=== PATIENT | male | born 1950 | race Caucasian/White ===

== ENCOUNTER 2020-09-22 08:30 | Outpatient (REF) | payer BC, SELFPAY ==
--- NOTE | ~2020-09-22 | XR_ITS ---
EXAMINATION: XR KNEE STANDING, BILATERAL XR KNEE, LEFT CLINICAL INFORMATION: Pain. COMPARISON: None. TECHNIQUE: AP standing view of the right and left knee. Lateral and sunrise views of the left knee. FINDINGS: Mild left knee medial compartment joint space narrowing. Tiny patellofemoral marginal osteophytes. No erosion. No fracture or dislocation. Trace joint effusion. Atherosclerotic calcifications. XR/XR knee standing BI IMPRESSION: Mild medial and patellofemoral compartment osteoarthritis within the left knee. Trace joint effusion.
--- NOTE | ~2020-09-22 | XR_ITS ---
EXAMINATION: XR KNEE STANDING, BILATERAL XR KNEE, LEFT CLINICAL INFORMATION: Pain. COMPARISON: None. TECHNIQUE: AP standing view of the right and left knee. Lateral and sunrise views of the left knee. FINDINGS: Mild left knee medial compartment joint space narrowing. Tiny patellofemoral marginal osteophytes. No erosion. No fracture or dislocation. Trace joint effusion. Atherosclerotic calcifications. XR/XR knee LT 2V IMPRESSION: Mild medial and patellofemoral compartment osteoarthritis within the left knee. Trace joint effusion.
== END 2020-09-22 08:31 | disposition home or self-care (01) ==
LOC: HO.HOSX 08:30
PROVIDERS: Visit Provider Physician Assistant
DX: M25.562 Pain in left knee (principal); M17.12 Unilateral primary osteoarthritis, left knee; M10.9 Gout, unspecified; I10 Essential (primary) hypertension; C34.90 Malignant neoplasm of unspecified part of unspecified bronchus or lung
CPT/HCPCS: 73560; 73565

== ENCOUNTER 2020-12-06 08:05 | Outpatient (REF) | payer MEDICARE, SELFPAY ==
[2020-12-06 11:29] LABS: MANUAL DIFF FLAG NO
[2020-12-06 11:33] LABS: Basophils Absolute Auto 0.1 X10*3/uL (0.0-0.2); Eosinophils Absolute Auto 0.4 X10*3/uL (0.0-0.4); Eosinophils Percent Auto 4.4 % (0-4); Hematocrit 40.4 % (42-52); Hemoglobin 12.6 g/dl (14.0-18.0); Imm Gran Abs Auto 0.03 X10*3/uL (0.00-0.03); Imm Gran Pct Auto 0.4 % (0.0-0.4); Lymphocytes Absolute Auto 0.9 X10*3/uL (1.2-4.9); Lymphocytes Percent Auto 11.1 % (20-40); Mean Corpuscular HGB Conc 31.2 g/dl (31.0-36.0); Mean Corpuscular Hemoglobin 26.3 pg (27.0-33.0); Mean Corpuscular Volume 84.3 fL (80-98); Mean Platelet Volume 10.4 fL (9.4-12.4); Monocytes Absolute Auto 1.2 X10*3/uL (0.1-1.2); Monocytes Percent Auto 15.1 % (2-11); Neutrophils Absolute Auto 5.6 X10*3/uL (2.0-8.3); Platelet Count 385 X10*3/uL (160-400); Red Blood Count 4.79 X10*6/uL (4.60-5.80); Red Cell Distribution Width 18.5 % (11.0-16.0); White Blood Count 8.2 X10*3/uL (4.8-10.8)
[2020-12-06 11:57] LABS: Alanine Aminotransferase 17 U/L (0-40); Albumin Level 4.2 g/dL (3.5-5.0); Alkaline Phosphatase 95 U/L (39-117); Anion Gap 16 (12-20); Aspartate Amino Transferase 20 U/L (5-37); Bilirubin Total 0.3 mg/dL (0.0-1.0); Blood Urea Nitrogen 27 mg/dL (9-16); Calcium 9.4 mg/dL (8.4-10.2); Carbon Dioxide 24 mmol/L (22-29); Chloride 102 mmol/L (96-108); Cholesterol 132 mg/dL; Estimated Glomerular Filt Rate > 60; Glucose Fasting 107 mg/dL (60-99); HDL Cholesterol 30 mg/dL; LDL Cholesterol Calculated 73 mg/dl; Potassium 4.4 mmol/L (3.3-5.1); Sodium 138 mmol/L (135-145); Total Protein 8.5 g/dL (6.5-8.0); Triglycerides 147 mg/dL
[2020-12-06 12:22] LABS: Thyroid Stimulating Hormone 2.86 uIU/mL (0.32-4.0); Vitamin D 25-OH Total 58.8 ng/mL (>30)
== END 2020-12-06 08:06 | disposition home or self-care (01) ==
LOC: HO.HMGCLDS 08:05
PROVIDERS: PCP Internal Medicine; Visit Provider Internal Medicine
DX: C34.31 Malignant neoplasm of lower lobe, right bronchus or lung (principal); E78.00 Pure hypercholesterolemia, unspecified; E55.9 Vitamin D deficiency, unspecified; N40.0 Benign prostatic hyperplasia without lower urinary tract symptoms; M10.9 Gout, unspecified
CPT/HCPCS: 36415; 80053; 80061; 82306; 84443; 85025

== ENCOUNTER 2021-10-03 08:26 | Outpatient (REF) | payer MEDICARE, SELFPAY ==
[2021-10-03 11:16] LABS: MANUAL DIFF FLAG NO
[2021-10-03 11:21] LABS: Appearance Urine Clear; Color Urine Yellow; Glucose Urine UA Negative (Negative); Leukocyte Esterase Urine Negative (Negative); Nitrite Urine Negative (Negative); PH 5.5 (5.0-8.0); Urine Blood Negative (Negative); Urine Ketones Negative (Negative); Urine Protein Negative (Neg-Trace)
[2021-10-03 11:25] LABS: Bacteria Urine None Seen (None Seen); Basophils Absolute Auto 0.1 X10*3/uL (0.0-0.2); Basophils Percent Auto 0.8 % (0-2); Eosinophils Absolute Auto 0.3 X10*3/uL (0.0-0.4); Eosinophils Percent Auto 4.8 % (0-4); Hemoglobin 13.4 g/dl (14.0-18.0); Hyaline Casts Urine 0-2 /LPF (0-2); Imm Gran Abs Auto 0.04 X10*3/uL (0.00-0.03); Imm Gran Pct Auto 0.6 % (0.0-0.4); Lymphocytes Absolute Auto 1.1 X10*3/uL (1.2-4.9); Mean Corpuscular HGB Conc 33.5 g/dl (31.0-36.0); Mean Corpuscular Hemoglobin 30.3 pg (27.0-33.0); Mean Corpuscular Volume 90.5 fL (80.0-98.0); Mean Platelet Volume 10.4 fL (9.4-12.4); Monocytes Percent Auto 13.3 % (2-11); Neutrophils Absolute Auto 4.7 x10*3/uL (2.0-8.3); Neutrophils Percent Auto 65.5 % (45-73); Platelet Count 287 X10*3/uL (160-400); Red Blood Count 4.42 X10*6/uL (4.60-5.80); Red Cell Distribution Width 13.6 % (11.0-16.0); Squamous Epithelial Cell Urine 0-2 /HPF (0-2); WBC Urine 0-5 /HPF (0-5); White Blood Count 7.2 X10*3/uL (4.8-10.8)
[2021-10-03 12:18] LABS: Alanine Aminotransferase 18 U/L (0-40); Albumin Level 4.3 g/dL (3.5-5.0); Alkaline Phosphatase 85 U/L (39-117); Anion Gap 16 (12-20); Aspartate Amino Transferase 18 U/L (5-37); Bilirubin Total 0.4 mg/dL (0.0-1.0); Blood Urea Nitrogen 21 mg/dL (9-16); Calcium 9.3 mg/dL (8.4-10.2); Carbon Dioxide 23 mmol/L (22-29); Chloride 106 mmol/L (96-108); Cholesterol 155 mg/dL; Estimated Glomerular Filt Rate > 60; Glucose Fasting 125 mg/dL (60-99); HDL Cholesterol 40 mg/dL; LDL Cholesterol Calculated 95 mg/dl; Potassium 4.2 mmol/L (3.3-5.1); Sodium 141 mmol/L (135-145); Total Protein 7.6 g/dL (6.5-8.0); Triglycerides 103 mg/dL
[2021-10-03 12:23] LABS: PSA,Total (Free>4and<10) 0.87 ng/mL (0.00-4.00); Thyroid Stimulating Hormone 0.98 uIU/mL (0.32-4.0); Vitamin D 25-OH Total 52.7 ng/mL (>30)
== END 2021-10-03 08:27 | disposition home or self-care (01) ==
LOC: HO.HMGCLDS 08:26
PROVIDERS: PCP Internal Medicine; Visit Provider Internal Medicine
DX: Z12.5 Encounter for screening for malignant neoplasm of prostate (principal); E78.00 Pure hypercholesterolemia, unspecified; C34.31 Malignant neoplasm of lower lobe, right bronchus or lung; N40.0 Benign prostatic hyperplasia without lower urinary tract symptoms; E55.9 Vitamin D deficiency, unspecified; R09.82 Postnasal drip
CPT/HCPCS: 36415; 80053; 80061; 81001; 82306; 84153; 84443; 85025

== ENCOUNTER 2022-11-11 09:13 | Day surgery (SDC) | payer MEDICARE, SELFPAY ==
--- NOTE | 2022-11-08 09:18 | P.CONAN_ITS ---
Documented by User: Madalyn Mckinney NP 11/08/22 09:19 HPI - Anesthesia Eval Consult details Narrative: 72yo M for Colonoscopy PMFSH Active Problems Active Problems: All Active Problems (Updated 11/08/22 @ 06:45 by Mercedes Hays RN) Osteoarthritis of left knee (Acute) Past Medical History Medical History Back pain Hyperlipidemia Gout Lung cancer Surgical History Surgical History Hx of cataract extraction History of lung surgery Hx of colonoscopy Social History Social History Alcohol intake: never Patient Tobacco Use Status: Tobacco use Unknown Advance Directives: No Advance Directives Information Provided: Yes Current occupational status: retired Meds Allergies Allergy/AdvReac Type Severity Reaction Status Date / Time No Known Allergies Allergy Unverified 10/28/19 15:29 [No Known Allergies*] Home Medications Medication Instructions Recorded Confirmed Last Taken Type atorvastatin 10 mg tablet 10 mg PO DAILY 09/22/20 Unknown History cholecalciferol (vitamin D3) 50 50 mcg PO DAILY 09/22/20 Unknown History mcg (2,000 unit) capsule fluticasone propionate 50 1 spray intranasal DAILY 09/22/20 Unknown History mcg/actuation nasal spray,suspension ibuprofen 800 mg tablet 800 mg PO TID 09/22/20 Unknown History tamsulosin 0.4 mg capsule 0.4 mg PO DAILY 09/22/20 Unknown History Exam Exam Date and Time: November 08, 2022 0918 Assessment and Plan Assessment Anesthesia Assessment: Chart Reviewed Documented by User: Shoshana Doss MD 11/11/22 10:56 HPI - Anesthesia Eval Consult details Narrative: 72yo M for Colonoscopy. Colonoscopy x2 several years ago-conscious sedtion- demerol/versed, fentanyl/versed PMFSH Active Problems Active Problems: All Active Problems (Updated 11/11/22 @ 10:24 by Shoshana Doss MD) Osteoarthritis of left knee (Acute) Snores but never had sleep study Past Medical History Medical History Back pain Hyperlipidemia Gout Lung cancer Family History Family history of problems with anesthesia: No Surgical History Surgical History Hx of cataract extraction History of lung surgery Hx of colonoscopy History of Problems with Anesthesia: No Social History Social History Alcohol intake: never Patient Tobacco Use Status: Tobacco use Unknown Advance Directives: No Advance Directives Information Provided: Yes Current occupational status: retired Meds Allergies Allergy/AdvReac Type Severity Reaction Status Date / Time No Known Allergies Allergy Unverified 10/28/19 15:29 [No Known Allergies*] Home Medications Medication Instructions Recorded Confirmed Last Taken Type atorvastatin 10 mg tablet 10 mg PO DAILY 09/22/20 Unknown History cholecalciferol (vitamin D3) 50 50 mcg PO DAILY 09/22/20 Unknown History mcg (2,000 unit) capsule fluticasone propionate 50 1 spray intranasal DAILY 09/22/20 Unknown History mcg/actuation nasal spray,suspension ibuprofen 800 mg tablet 800 mg PO TID 09/22/20 Unknown History tamsulosin 0.4 mg capsule 0.4 mg PO DAILY 09/22/20 Unknown History Exam Height,Weight and Vital Signs: Height 6 ft 2 in Weight 113.398 kg Vital Signs Temp Pulse Resp BP Pulse Ox O2 Del Method 11/11/22 10:09 96.9 F 97 18 144/84 H 94 Room Air Airway Mallampati Class: III TM Dist: >3cm Neck ROM: Full Partial: Upper Loose/Missing/Broken Teeth: Yes (Partial dentures top. Denies broken or loose teeth) Heart: RRR Lungs: CTAB Assessment and Plan Assessment Anesthesia Assessment: Anesthesia Plan Discussed Final Anesthetic Review Family History of Problems with Anesthesia: No History of Problems with Anesthesia: No NPO: Yes ASA Class: III Final Preanesthetic Review: No Changes in Pt Med Stat, Meds/Allgs Chart Reviewed, Consent Obtained/Reviewed and Anes Risks/Benef Reviewed Patient Risk: Intermediate Procedure Risk: Low Assessment/Block/Sedation in SS: Assess/Block/Sedation-SS Anesthetic Plan Anesthetic Plan: MAC: Disposition: Standard PACU
[2022-11-11 10:09] VITALS: BP 144/84; PULSE 97; RESP 18; TEMP 36.1; O2SAT 94; BMI 32.1
[2022-11-11] MEDS: Lactated Ringers 1,000 ML 100 ML IVCONT (10:51)
[2022-11-11 12:02] VITALS: BP 108/58; PULSE 100; RESP 16; TEMP 36.1; O2SAT 99
--- NOTE | 2022-11-11 12:08 | P.BOP_ITS ---
Brief Operative Note Date of Service: 11/11/22 Pre-op diagnosis: Screening Post-op diagnosis: other (Polyps) Procedure: Colonoscopy to the cecum and TI with hot snare polypectomy at 50cm with placement of 1 Resolution clip, and cold snare polypectomy of rectal polyp Surgeon: Ac Plata Anesthesia: MAC Was an Instrument Technician Helper used for this Procedure?: No Estimated blood loss (mL): 2.0 Pathology: other (A. Polyp at 50cm B. Rectal polyp) Condition: stable Disposition: PACU
[2022-11-11 12:17] VITALS: BP 114/73; PULSE 89; RESP 16; TEMP 36.6; O2SAT 97
--- NOTE | 2022-11-11 21:23 | OP_ITS ---
DATE OF SERVICE: 11/11/2022 SURGEON: Ac Plata MD INDICATIONS: The patient presents for evaluation of colorectal cancer screening. Full consent has been obtained from him for this, including risks of bleeding and perforation. PREOPERATIVE DIAGNOSIS: Colorectal cancer screening. POSTOPERATIVE DIAGNOSIS: PROCEDURE PERFORMED: Colonoscopy to the cecum and terminal ileum with hot snare polypectomy x 1 with placement of a resolution clip at 50 cm and cold snare polypectomy of rectal polyp. ESTIMATED BLOOD LOSS: COMPLICATIONS: ANESTHESIA: Monitored anesthesia care. ASSISTANTS: SPECIMENS: POSTOPERATIVE DIAGNOSES: Colorectal cancer screening, colon polyps, diverticulosis, and internal hemorrhoids. DESCRIPTION OF PROCEDURE: The patient was placed in the left lateral decubitus position. The digital rectal exam revealed no abnormalities. The Olympus video pediatric colonoscope was entered into the rectum and advanced to the cecum with the assistance of abdominal wall pressure. Once in the cecum, I did identify normal-appearing cecal pouch with appendiceal orifice and a normal-appearing ileocecal valve. The terminal ileum was cannulated and appeared normal. The scope was withdrawn back in the colon. The entire cecum and ileocecal valve appeared normal. The scope was then slowly withdrawn assessing all mucosal surfaces carefully. Preparation was excellent. At 50 cm was an approximately 10 mm polyp, which was removed by hot snare polypectomy and recovered by suction. A single resolution clip was applied with good deployment and good hemostasis at the polypectomy site. In the distal rectum was an approximately 4 mm polyp, which was removed by cold snare polypectomy and recovered by suction. The polypectomy site appeared clean, without any sign of residual polyp nor significant bleeding. There were several hyperplastic appearing less than 5 mm polyps in the rectosigmoid area as well, but these were not removed nor biopsied. There was a moderate amount of sigmoid diverticulosis. In the rectum, scope was retroflexed visualizing small internal hemorrhoids as well. The scope was straightened and withdrawn from the patient. He tolerated the procedure well and was returned to the recovery area in stable condition. IMPRESSION: 1. Colon polyps. 2. Diverticulosis. 3. Internal hemorrhoids. PLAN: The results of the pathology will be checked, I would recommend a repeat colonoscopy in 5 years for further screening and surveillance. He was advised not to use any aspirin and NSAIDs for 1 week. He will otherwise see me on a p.r.n. basis. MD GRAZYNA Koch/KONSTANTIN / [id number] NADEGE
== END 2022-11-11 14:19 | disposition home or self-care (01) ==
PROVIDERS: PCP Internal Medicine; Visit Provider Internal Medicine
PROC: 0DJD8ZZ Inspection of Lower Intestinal Tract, Via Natural or Artificial Opening Endoscopic (ICD-10-PCS; CPT 45378; principal; 2022-11-11 10:50)
DX: Z12.11 Encounter for screening for malignant neoplasm of colon (principal); Z80.0 Family history of malignant neoplasm of digestive organs; D12.5 Benign neoplasm of sigmoid colon; K62.1 Rectal polyp; K57.30 Diverticulosis of large intestine without perforation or abscess without bleeding; K64.8 Other hemorrhoids; Z85.118 Personal history of other malignant neoplasm of bronchus and lung; Z79.899 Other long term (current) drug therapy; Z87.891 Personal history of nicotine dependence
CPT/HCPCS: 45385; 88305

== ENCOUNTER 2023-04-17 08:49 | Outpatient (REF) | payer MEDICARE, SELFPAY ==
[2023-04-17 11:30] LABS: Appearance Urine Turbid; Color Urine Dark Yellow; Glucose Urine UA Negative (Negative); Leukocyte Esterase Urine Trace (Negative); Nitrite Urine Negative (Negative); PH 5.5 (5.0-9.0); Specific Gravity - Urine 1.025 (1.005-1.025); UMIC TRIGGER UA YES; Urine Blood Negative (Negative); Urine Ketones Trace mg/dL (Negative); Urine Protein 30 (1+) mg/dL (Neg-Trace)
[2023-04-17 11:36] LABS: Bacteria Urine None Seen (None Seen); RBC Urine 0-2 /HPF (0-2); Squamous Epithelial Cell Urine 0-2 /HPF (0-2); WBC Urine 0-5 /HPF (0-5)
[2023-04-17 11:38] LABS: MANUAL DIFF FLAG NO
[2023-04-17 11:42] LABS: Basophils Absolute Auto 0.1 X10*3/uL (0.0-0.2); Basophils Percent Auto 1.2 % (0-2); Eosinophils Absolute Auto 0.3 X10*3/uL (0.0-0.4); Eosinophils Percent Auto 3.8 % (0-4); Hematocrit 43.3 % (42.0-52.0); Hemoglobin 14.6 g/dl (14.0-18.0); Imm Gran Abs Auto 0.04 X10*3/uL (0.00-0.03); Imm Gran Pct Auto 0.5 % (0.0-0.4); Lymphocytes Absolute Auto 1.3 X10*3/uL (1.2-4.9); Lymphocytes Percent Auto 16.7 % (20-40); Mean Corpuscular HGB Conc 33.7 g/dl (31.0-36.0); Mean Corpuscular Hemoglobin 30.7 pg (27.0-33.0); Mean Platelet Volume 10.8 fL (9.4-12.4); Monocytes Absolute Auto 0.9 X10*3/uL (0.1-1.2); Monocytes Percent Auto 12.4 % (2-11); Neutrophils Percent Auto 65.4 % (45-73); Platelet Count 268 X10*3/uL (160-400); Red Blood Count 4.76 X10*6/uL (4.60-5.80); Red Cell Distribution Width 13.2 % (11.0-16.0); White Blood Count 7.6 X10*3/uL (4.8-10.8)
[2023-04-17 12:18] LABS: Thyroid Stimulating Hormone 1.46 uIU/mL (0.32-4.0); Vitamin D 25-OH Total 48.3 ng/mL (>30)
[2023-04-17 12:20] LABS: Alanine Aminotransferase 26 U/L (0-40); Albumin Level 4.5 g/dL (3.5-5.0); Alkaline Phosphatase 85 U/L (39-117); Anion Gap 17 (12-20); Aspartate Amino Transferase 24 U/L (5-37); Bilirubin Total 0.5 mg/dL (0.0-1.0); Blood Urea Nitrogen 22 mg/dL (9-16); Calcium 10.1 mg/dL (8.4-10.2); Carbon Dioxide 21 mmol/L (22-29); Chloride 104 mmol/L (96-108); Cholesterol 150 mg/dL (<200); Estimated Glomerular Filt Rate > 60; Glucose Fasting 141 mg/dL (60-99); HDL Cholesterol 33 mg/dL (>40); LDL Cholesterol Calculated 79 mg/dL (<100); Potassium 4.4 mmol/L (3.3-5.1); Sodium 138 mmol/L (135-145); Total Protein 8.3 g/dL (6.5-8.0); Triglycerides 194 mg/dL (<150)
== END 2023-04-17 08:50 | disposition home or self-care (01) ==
LOC: HO.HMGCLDS 08:49
PROVIDERS: PCP Internal Medicine; Visit Provider Internal Medicine
DX: Z00.00 Encounter for general adult medical examination without abnormal findings (principal); N40.0 Benign prostatic hyperplasia without lower urinary tract symptoms; E66.09 Other obesity due to excess calories; E78.00 Pure hypercholesterolemia, unspecified; E55.9 Vitamin D deficiency, unspecified; R09.82 Postnasal drip; C34.31 Malignant neoplasm of lower lobe, right bronchus or lung; Z12.5 Encounter for screening for malignant neoplasm of prostate
CPT/HCPCS: 36415; 80053; 80061; 81001; 82306; 84153; 84443; 85025

== ENCOUNTER 2024-04-14 09:25 | Outpatient (REF) | payer MEDICARE, SELFPAY ==
--- OUTSIDE RECORDS SUMMARY | 2024-04-14 11:45 | XMS_ITS | Clinical Summary ---
Author Organization [facility] Address [address] [place] [address] Care Team Providers Care Public Safety Police Name Role Phone Ac Garcia Primary Care Provider [phone] Allergies No known active allergies Medications Medication [...] age to complete this topic Care Teams Public Safety Police Relationship Specialty Start Date End Date Ac Garcia DO [address] [place] [phone] PCP - General Internal Medicine 07/30/16
--- OUTSIDE RECORDS SUMMARY | 2024-04-14 11:45 | XMS_ITS | Encounter Summary ---
Author Organization [facility] Address [address] [place] [address] Care Team Providers Care Inspector Eyeglass Name Role Phone Ac Garcia DO Primary Care Provider [phone] Encounter Details Date Type Department Care Team Description 12/12/2017 Nurse Only [facility] Oncology Services [address] [place] [address] Loren Crain, RN Social History Tobacco Use [...] this encounter Progress Notes * Loren Crain, CEILING INSTALLER - 12/12/2017 2:50 PM EDT Survivorship Visit [...] provided him with a copy of the [place] [employer] Cancers Survivorship Guide Book and encouraged him to call with any additional questions or concerns. Please see Survivorship Care Plan below. [facility] Survivorship Treatment Plan cA Halle 1950 This Survivorship plan has been created for you by your oncology team. It contains information on how to contact her team, a summary of your diagnosis and treatment, recommendations for your follow-up care as well as information about maintaining a healthy style. Care Team: Surgeon Dr. Sukhjinder Whitney [phone] Danuta Hernandez [phone] 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 Annual skin exam by PCP or fisher dip net. ?? Lung: Patient at increased risk if [...] recommended resources that could be helpful: ??? [employer]: www.cancer.org or call ??? The Survivorship Center: www.cancer.org/survivorshipcenter ??? [employer]: www.[employer].org ??? Survivor's Journey [email or web address] Note: Important Caution [...] on filedocumented in this encounter Care Teams Inspector Eyeglass Relationship Specialty Start Date End Date Ac Garcia DO [address] [place] [phone] PCP - General Internal Medicine 07/30/16 documented as of this encounter
--- OUTSIDE RECORDS SUMMARY | 2024-04-14 11:45 | XMS_ITS | Clinical Summary ---
Author Organization [facility] Address [address] [place] [phone] Care Team Providers Care Body And Frame Man Name Role Phone Ac Garcia DO Primary Care Provider [phone] Allergies No known active allergies Medications atorvastatin [...] Site/Laterality Comments OTHER SURGICAL HISTORY Right PROCEDURE: [place] RMVL LUNG OTHER THAN PNEUMONECTOMY 1 LOBE LOBECT; COMMENT: s/p RLL lobectomy 2017 Medical History Medical History Date Comments Lung cancer ([facility]/HCC) 2017 DX:Lung ca ncer ([facility]) Family History Medical History Relation Name Comments [...] Documents on File Type Date Recorded Patient Sample Weaver Expl anation Health Care Decision (hx) 06/25/2022 AD RAMIREZ DIRECTIVE Health Care Decision (hx) 06/25/2022 AD RAMIREZ DIRECTIVE Care Teams Body And Frame Man Relationship Specialty Start Date End Date Ac Garcia DO [address] [place] [phone] PCP - General 05/29/16
[2024-04-14 13:32] LABS: Basophils Absolute Auto 0.1 X10*3/uL (0.0-0.2); Basophils Percent Auto 1.2 % (0-2); Eosinophils Absolute Auto 0.3 X10*3/uL (0.0-0.4); Eosinophils Percent Auto 3.9 % (0-4); Hematocrit 42.6 % (42.0-52.0); Hemoglobin 13.8 g/dl (14.0-18.0); Imm Gran Abs Auto 0.04 X10*3/uL (0.00-0.03); Imm Gran Pct Auto 0.6 % (0.0-0.4); Lymphocytes Absolute Auto 1.1 X10*3/uL (1.2-4.9); Lymphocytes Percent Auto 16.8 % (20-40); MANUAL DIFF FLAG NO; Mean Corpuscular HGB Conc 32.4 g/dl (31.0-36.0); Mean Corpuscular Hemoglobin 30.4 pg (27.0-33.0); Mean Corpuscular Volume 93.8 fL (80.0-98.0); Mean Platelet Volume 10.7 fL (9.4-12.4); Monocytes Absolute Auto 0.9 X10*3/uL (0.1-1.2); Monocytes Percent Auto 13.2 % (2-11); Neutrophils Absolute Auto 4.3 x10*3/uL (2.0-8.3); Neutrophils Percent Auto 64.3 % (45-73); Platelet Count 235 X10*3/uL (160-400); Red Blood Count 4.54 X10*6/uL (4.60-5.80); Red Cell Distribution Width 13.3 % (11.0-16.0); White Blood Count 6.7 X10*3/uL (4.8-10.8)
[2024-04-14 13:47] LABS: Estimated Average Glucose 154 mg/dL; Total Hemoglobin (HGBA1C) 3620.8429 umol/L
[2024-04-14 14:07] LABS: Alanine Aminotransferase 34 U/L (0-40); Albumin Level 4.3 g/dL (3.5-5.0); Alkaline Phosphatase 93 U/L (39-117); Anion Gap 11 (12-20); Aspartate Amino Transferase 28 U/L (5-37); Bilirubin Direct 0.1 mg/dL (0.0-0.5); Bilirubin Total 0.4 mg/dL (0.0-1.0); Blood Urea Nitrogen 18 mg/dL (9-16); C Reactive Protein 0.52 mg/dL (< or = 0.50); Calcium 9.6 mg/dL (8.4-10.2); Carbon Dioxide 27 mmol/L (22-29); Chloride 109 mmol/L (96-108); Cholesterol 148 mg/dL (<200); Estimated Glomerular Filt Rate > 60; Glucose Fasting 169 mg/dL (60-99); HDL Cholesterol 37 mg/dL (>40); LDL Cholesterol Calculated 79 mg/dL (<100); Magnesium 2.1 mg/dL (1.6-2.6); Potassium 5.2 mmol/L (3.3-5.1); Sodium 142 mmol/L (135-145); Triglycerides 163 mg/dL (<150)
[2024-04-14 14:08] LABS: TSH reflex Free T4 1.15 uIU/mL (0.32-4.0); Vitamin D 25-OH Total 67.5 ng/mL (>30)
[2024-04-14 14:22] LABS: Creatinine Urine 144.18 mg/dL; Microalbum/Creatinine Ratio Ur 6.9 ug/mg cr (<30)
[2024-04-14 14:37] LABS: PSA,Total (Free>4and<10) 1.06 ng/mL (0.00-4.00)
[2024-04-14 14:51] LABS: Folate 19.5 ng/mL (> or = 4.0); Vitamin B12 1679 pg/mL (200-900)
[2024-04-24 08:38] LABS: Vitamin B1 26 nmol/L (8-30)
== END 2024-04-14 09:26 | disposition home or self-care (01) ==
LOC: HO.HMGCLDS 09:25
PROVIDERS: PCP Internal Medicine; Visit Provider Physician Assistant Medical
DX: Z00.00 Encounter for general adult medical examination without abnormal findings (principal); E11.9 Type 2 diabetes mellitus without complications; H91.93 Unspecified hearing loss, bilateral; E78.00 Pure hypercholesterolemia, unspecified; N40.0 Benign prostatic hyperplasia without lower urinary tract symptoms; H26.9 Unspecified cataract; R31.9 Hematuria, unspecified; E55.9 Vitamin D deficiency, unspecified; M54.9 Dorsalgia, unspecified; C34.90 Malignant neoplasm of unspecified part of unspecified bronchus or lung; M10.9 Gout, unspecified; M17.12 Unilateral primary osteoarthritis, left knee; E66.811 Obesity, class 1; Z68.33 Body mass index [BMI] 33.0-33.9, adult; F10.20 Alcohol dependence, uncomplicated; Z79.899 Other long term (current) drug therapy; Z12.5 Encounter for screening for malignant neoplasm of prostate
CPT/HCPCS: 36415; 80053; 80061; 80076; 82043; 82306; 82570; 82607; 82746; 83036; 83735; 84153; 84425; 84443; 85025; 86140; 99387

== ENCOUNTER 2024-04-14 09:25 | Outpatient (AMB) | payer MEDICARE, SELFPAY ==
--- NOTE | 2024-04-14 09:26 | A.OFFPC_ITS ---
Vital Signs 04/14/24 09:29 Height 6 ft 1.75 in Weight 259 lb BMI 33.5 BP 126/72 Blood Pressure Location Rt brachial Pulse 75 Pulse Source Pulse Oximeter Temp 97.1 F Pulse Oximetry (%) 96 Intake Visit Reasons: physical Intake Note: tightness between shoulders and goes up to neck Allergies No Known Allergies [No Known Allergies*] Allergy (Verified 04/14/24 09:53) Medication List - Last Reconciled 04/14/24 by Kasia Peters PA-C atorvastatin 10 mg PO DAILY cholecalciferol (vitamin D3) 50 mcg PO DAILY fluticasone propionate 50 mcg/actuation 1 spray intranasal DAILY ibuprofen 800 mg PO TID multivitamin 1 tab PO DAILY tamsulosin 0.4 mg PO DAILY PFSH Medical History (Updated 04/14/24 @ 10:07 by Kasia Peters PA-C) Class 1 obesity with body mass index (BMI) of 33.0 to 33.9 in adult Decreased hearing of both ears History of intracranial hemorrhage Mild hypercholesterolemia BPH (benign prostatic hyperplasia) Cataract Alcoholism Hematuria Vitamin D deficiency Back pain Hyperlipidemia Gout Lung cancer Surgical History Hx of cataract extraction History of lung surgery Hx of colonoscopy (~11/11/22) Social History Alcohol intake: never Comment: WALKING NEW DOG 2 WKS AGO Patient Tobacco Use Status: Tobacco use Unknown Current occupational status: retired Physical exam (Primary Care) Vital Signs: Last Vital Signs Temp 97.1 F 04/14/24 09:29 Pulse 75 04/14/24 09:29 BP 126/72 04/14/24 09:29 Pulse Ox 85 L 04/14/24 09:29 Care Plan Goal for BP management: 130/80 BMI result Body Mass Index 33.5 BMI Assessment/Plan discussion: High BMI High, discussed plan: lifestyle, weight reduction, dietary, physical activity and alcohol moderation Tobacco/Smoking Status: Tobacco use Status Patient Tobacco Use Status Tobacco use Unknown 04/14/24 09:31 Coding Level of Care Code New Pt Prev Care >65yr (98992) Diagnoses Decreased hearing of both ears H91.93 Mild hypercholesterolemia E78.00 BPH (benign prostatic hyperplasia) N40.0 Cataract H26.9 Hematuria R31.9 Vitamin D deficiency E55.9 Back pain M54.9 Lung cancer C34.90 Gout M10.9 Hyperlipidemia E78.5 Osteoarthritis of left knee M17.12 Class 1 obesity with body mass index (BMI) of 33.0 to 33.9 in adult E66.811; Z68.33 Alcoholism F10.20 Assessment & Plan Assessment & Plan (1) Decreased hearing of both ears: Code(s): H91.93 - Unspecified hearing loss, bilateral Category: Medical Plan: Patient reports decreased hearing. Will refer to ENT Dr. Minaya. Condition is chronic and stable continue to monitor. (2) Mild hypercholesterolemia: Code(s): E78.00 - Pure hypercholesterolemia, unspecified Category: Medical Plan: LDL Goal <100. TC Goal <200. Triglyceride Goal <150. Triglyceride on 04/17/2023 was 194. Total cholesterol 150. LDL 79. HDL 33. Patient to continue improving his diet and exercise regimen. Patient to continue atorvastatin 10 mg daily. Condition is chronic and stable continue to monitor. (3) BPH (benign prostatic hyperplasia): Code(s): N40.0 - Benign prostatic hyperplasia without lower urinary tract symptoms Category: Medical Plan: Patient to continue tamsulosin 0.4 mg daily. Condition is chronic and stable continue to monitor. (4) Cataract: Code(s): H26.9 - Unspecified cataract Category: Medical Plan: Patient is a continue yearly eye exams. Condition is chronic and stable continue to monitor. (5) Hematuria: Comment: Benign with negative workup Code(s): R31.9 - Hematuria, unspecified Category: Medical Plan: Condition is chronic and stable continue to monitor. (6) Vitamin D deficiency: Code(s): E55.9 - Vitamin D deficiency, unspecified Category: Medical Plan: Patient's last labs in April of 2023 vitamin-D level was within normal limits. Patient to continue vitamin-D supplement 50 mcg daily. Condition is chronic and stable with any to monitor. (7) Back pain: Comment: disc disease Code(s): M54.9 - Dorsalgia, unspecified Category: Medical Plan: Patient to continue ibuprofen 800 mg t.i.d./p.r.n.. Condition is chronic and stable continue to monitor. (8) Lung cancer: Comment: s/p RLL resection Code(s): C34.90 - Malignant neoplasm of unspecified part of unspecified bronchus or lung Category: Medical Plan: Condition is chronic and stable continue to monitor. (9) Gout: Comment: both legs Code(s): M10.9 - Gout, unspecified Category: Medical Plan: Condition is chronic and stable continue to monitor. (10) Hyperlipidemia: Code(s): E78.5 - Hyperlipidemia, unspecified Category: Medical Plan: LDL Goal <100. TC Goal <200. Triglyceride Goal <150. Triglyceride on 04/17/2023 was 194. Total cholesterol 150. LDL 79. HDL 33. Patient to continue improving his diet and exercise regimen. Patient to continue atorvastatin 10 mg daily. Condition is chronic and stable continue to monitor. (11) Osteoarthritis of left knee: Code(s): M17.12 - Unilateral primary osteoarthritis, left knee Category: Medical Plan: Patient currently on ibuprofen 800 mg t.i.d./p.r.n.. Condition is chronic and stable continue to monitor. (12) Class 1 obesity with body mass index (BMI) of 33.0 to 33.9 in adult: Code(s): E66.811 - Obesity, class 1; Z68.33 - Body mass index [BMI] 33.0-33.9, adult Category: Medical Plan: Patient has improved his diet and exercise regimen. Condition is chronic and stable continue to monitor. (13) Alcoholism: Code(s): F10.20 - Alcohol dependence, uncomplicated Category: Medical Plan: Condition is chronic and stable continue to monitor. Plan Plan Continue current hyperlipidemia management with atorvastatin and monitor with lipids. Elevation in glucose requires close watch and diabetes assessment through hemoglobin A1c checkpoints. Continual evaluation and management of benign prostatic hyperplasia with finasteride remains necessary. An otolaryngology referral for detailed hearing assessment has been arranged, and prompt treatment for specified chronic issues should persist as symptoms dictate. Post-cataract and lung cancer care have resolved symptoms with maintenance check-ups anticipated. Orders: Orders Comprehensive [place]. Panel Fast Today Z00.00 - Encounter for general adult medical examination without abnormal findings Complete Blood Count Auto Diff Today Z00.00 - Encounter for general adult medical examination without abnormal findings C Reactive Protein Today Z00.00 - Encounter for general adult medical examination without abnormal findings Hemoglobin A1c Today Z00.00 - Encounter for general adult medical examination without abnormal findings Lipid Panel Today Z00.00 - Encounter for general adult medical examination without abnormal findings Liver Panel Today Z00.00 - Encounter for general adult medical examination without abnormal findings Vitamin B1 Today Z00.00 - Encounter for general adult medical examination without abnormal findings Vitamin B12 and Folate Today Z00.00 - Encounter for general adult medical examination without abnormal findings PSA,Total (Free>4and<10) Today Z00.00 - Encounter for general adult medical examination without abnormal findings Magnesium Today Z00.00 - Encounter for general adult medical examination without abnormal findings TSH reflex Free T4 Today Z00.00 - Encounter for general adult medical examination without abnormal findings Vitamin D 25-OH Total Today Z00.00 - Encounter for general adult medical examination without abnormal findings Microalbumin, Random (w Creat) Today E11.9 - Type 2 diabetes mellitus without complications Referrals Ear/Nose/Throat Referral H91.93 - Unspecified hearing loss, bilateral Medications: New ibuprofen 800 mg PO TID 240 tabs 1RF multivitamin 1 tab PO DAILY 90 tabs 1RF atorvastatin 10 mg PO DAILY 90 tabs 1RF cholecalciferol (vitamin D3) 50 mcg PO DAILY 90 caps 1RF tamsulosin 0.4 mg PO DAILY 90 caps 1RF Refilled fluticasone propionate 50 mcg/actuation 1 spray intranasal DAILY 16 grams 3RF Patient Instructions: Patient Instructions - Continue current medications as prescribed and ensure adherence to atorvastatin. - Schedule fasting labs, including a hemoglobin A1c test for diabetes monitoring. - Attend referral appointment with an supervisor travel trailer for hearing assessment. - Arrange a follow-up in six months, or sooner if labs reveal abnormalities. - Monitor symptoms of concern and seek care if current conditions exacerbate. - Complete routine physical exam and blood work at designated intervals. Scribe Plan - Not visible on output: History of Present Illness The patient is a 73-year-old male presenting for an annual physical examination. The patient has hyperlipidemia controlled with atorvastatin, with previously monitored and acceptable lipid levels. The patient's glucose levels have been noted to be elevated in the past but no diagnosis of diabetes has been made, warranting regular monitoring and assessment of potential diabetes. The patient is in remission from right lower lobe lung cancer following resection surgery, with no current respiratory complaints. Managed for benign prostatic hyperplasia, the patient has had episodes of hematuria but currently shows no urinary symptoms. Cataract surgery on both eyes has resolved prior vision problems. For back pain and gout, the patient uses ibuprofen, with the conditions being managed effectively under current treatment. The patient reports diminished hearing ability, indicating a need for further assessment of potential hearing loss. Social History - The patient lives alone and reports no recent falls or difficulties in performing daily activities such as groceries or laundry. - The patient does not drive at night, suggesting self-regulation for safety. - The patient receives vision examinations regularly and plans future evaluations. Review of Systems - Neurological: Reports diminished hearing bilaterally. - Respiratory: Denies cough and reports chest pain only with physical exertion. - Gastrointestinal: Denies abdominal pain and reports regular bowel movements with no bloody stools. - Genitourinary: Reports increased urinary frequency without pain. - Musculoskeletal: Denies new joint pains, but history of back pain is noted. Physical Exam Appearance: Alert. Oriented X3. No acute distress. Head: Normal external exam. Normocephalic. Atraumatic. Eyes: Pupils are equal, round, and reactive to light. Extraocular movements intact. Conjunctiva and sclera normal. Eyelids normal. Ears: External auditory canal normal. Tympanic membranes normal. Hearing diminished, referral to ENT recommended. Throat: Pharynx normal. Uvula midline. Moist mucous membranes. Neck: Normal inspection. Neck supple. Full range of motion. No adenopathy. Thyroid Normal. No meningeal signs. No neck mass noted. Cardiovascular: Normal heart rate and rhythm. Heart sound normal. No murmurs noted. Pulses normal throughout. Respiratory: No respiratory distress. Painless inspiration. Breath sounds normal. No wheezes/rales/rhonchi noted. Chest nontender. No accessory muscle usage noted or decreased air movement noted. Abdomen: Soft and nontender. Bowel sounds normal in all 4 quadrants. No distention noted. No organomegaly noted. No visible injury noted. Back: No costovertebral angle tenderness. Full range of motion noted. Skin: Skin warm and dry. Normal skin color. Normal skin turgor. No rashes/lesions/lacerations noted. Extremities: No lower extremity edema. Extremities exhibit normal range of motion. Extremities nontender. Neuro: Oriented X 3. No motor deficit. No sensory deficit. Reflexes normal. Results - Labs: Prior labs show elevated triglycerides (194 mg/dL), with satisfactory total cholesterol and LDL levels. No recent hemoglobin A1c for diabetes screening conducted. - Based on prior report: Glucose noted to be slightly elevated, but not indicative of diabetes. Plan Continue current hyperlipidemia management with atorvastatin and monitor with lipids. Elevation in glucose requires close watch and diabetes assessment through hemoglobin A1c checkpoints. Continual evaluation and management of benign prostatic hyperplasia with finasteride remains necessary. An otolaryngology referral for detailed hearing assessment has been arranged, and prompt treatment for specified chronic issues should persist as symptoms dictate. Post-cataract and lung cancer care have resolved symptoms with maintenance check-ups anticipated. Patient was informed and verbally consented to the use of an ambient scribe for clinic note documentation during this visit. Discussion Notes During the consultation, a review of current treatments and adherence was carried out, with an added focus on glucose monitoring due to occasional elevations noted. A hemoglobin A1c test will be conducted given the importance of determining diabetic status, which potentially impacts management strategies. Referral for hearing assessment was discussed, and the patient recognized the importance of a potential intervention if necessary. All medications were renewed with refills to maintain compliance, ensuring continuity of care. Future blood work arrangements were made, emphasizing fasting for proper test results once labs are drawn. Patient Instructions - Continue current medications as prescribed and ensure adherence to at orvastatin. - Schedule fasting labs, including a hemoglobin A1c test for diabetes monitoring. - Attend referral appointment with an supervisor travel trailer for hearing assessment. - Arrange a follow-up in six months, or sooner if labs reveal abnormalities. - Monitor symptoms of concern and seek care if current conditions exacerbate. - Complete routine physical exam and blood work at designated intervals.
[2024-04-14 09:29] VITALS: BP 126/72; PULSE 75; TEMP 36.2; O2SAT 96; BMI 33.5
--- OUTSIDE RECORDS SUMMARY | 2024-04-14 10:34 | XMS_ITS | Encounter Summary ---
Author Organization [facility] Address [address] [place] [address] Care Team Providers Care Mainframe Architect Name Role Phone Ac Garcia DO Primary Care Provider [phone] Encounter Details Date Type Department Care Team Description 12/12/2017 Nurse Only [facility] Oncology Services [address] [place] [address] Loren Crain, RN Social History Tobacco Use Types Packs/Day Years Used Date Smoking Tobacco: Former Cigarettes 2 45 0 08/05/1966 - 08/06/2011 Smokeless Tobacco: Never Alcohol Use Standard Drinks/Week Comments No 0 (1 standard drink = 0.6 oz pur e alcohol) Sex and Gender Information Value Date Recorded Sex Assigned at Not on file Gender Identity Not on file Sexual Orientation Not on file Job Start Date Occupation Industry Not on file Not on file Not on file documented as of this encounter Progress Notes * Loren Crain, VICE PRESIDENT FINANCIAL - 12/12/2017 2:50 PM EDT Survivorship Visit Ac is a very pleasant 57-year-old male who was referred to me for a survivorship visit. He was initially diagnosed with lung cancer in July 2016 and underwent surgery followed by chemotherapy andradiation. He completed all his treatment at the end of 2016 and has entered into period of carefulongoing surveillance. Enclosed is a copy of his cancer survivorship care plan which proposes collaborative follow-up. At the time of his post treatment survivorship assessment today, he is generally doing quite well. He denies fatigue and there is no limitations in his ADLs. He remains physically active, states thathe walks his dog every day anywhere from 1-3 miles. He denies any fatigue or SOB. He is maintaininghis weight and admits to a balanced diet. He states that he does not drink (has not in 6-7 years) or smoke anymore. States that he follows up with his primary care every 6 months. Denies any financial or intercurrent stressors at this time. We discussed in detail a review today of patient's cancer survivorship care plan. We reviewed his anticipated schedule of oncology follow-up visits, as well as anticipated laboratory and imaging studies. We discussed the critical importance of continued primary care follow-ups. He states that she will continue to follow up with PCP on a regular basis. We discussed possible late side effects of treatments, as well as signs and symptoms of disease recurrence. We discussed at length the importanceof healthy lifestyle behavior, including health maintenance, weight management, sleep hygiene, nutritional intake, routine aerobic physical exercise, sun exposure and continued tobacco and alcohol abstinence. Local support groups and resources discussed. I provided him with a copy of the [place] [employer] Cancers Survivorship Guide Book and encouraged him to call with any additional questions or concerns. Please see Survivorship Care Plan below. [facility] Survivorship Treatment Plan Ac Halle 1950 This Survivorship plan has been created for you by your oncology team. It contains information on how to contact her team, a summary of your diagnosis and treatment, recommendations for your follow-up care as well as information about maintaining a healthy style. Care Team: Surgeon Dr. Sukhjinder Whitney [phone] Danuta Hernandez [phone] 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 08/28/2016-11/06/2016 Cisplatin 1250mg/m2 and Gemcitabine 1250mg/m2 Day 1, 8 x 4 cycles [facility] Radiation Therapy 12/16/2016-01/31/[address] [place] [id number] cGy [facility] CARDIOVASCULAR ISSUES DUE TO CHEST RADIATION: Patient at risk for premature coronary artery and/or valve disease. Patient encouraged to reduce cardiac risk factors. Reinforced cardiac risk factor reduction including aggressive management of lips and blood pressure control, smoking, weight, exercise, diet, and diabetes/glucose. RESPIRATORY ISSUES: Due to chest radiation, patient has increased risk for radiation pneumonitis. Ireinforced with him to report any concern with his breathing and to either contact us or his PCP. Surgery and chest radiation can cause lung problems. Pulmonary function tests (PFTs) will be done as medically appropriate. HEARING ISSUES: Survivors who received certain chemotherapies or cranial radiation can cause hearing problems. Please report any concerns about your hearing to healthcare providers. KIDNEY ISSUES: Survivors who receive certain chemotherapies medications and or pelvic radiation maybe at risk for kidney problems. Survivorship developed acute kidney injury during therapy should have the blood pressure checked annually TYROID ISSUES: Survivors who received chest radiation can develop nodules, hypothyroidism, hyperthyroidism or cancer. Survivors should have an annual TSH and a thyroid exam. COGNITIVES ISSUES: Patient who has had chemotherapy can report chemo brain . Cancer treatments disrupt the activity of nerve cells that are responsible for tasks like memory, attention, processing and executing functions. If you experience these symptoms, try to focus on one task at a time, use tools, rest and exercise regularly. Report any issue, including how much it's affecting your quality of life to a health care provider. FATIGUE: You may experience fatigue as result of cancer treatment, which often continues after treatment has ended. Staying physically active can help reduce fatigue. Some strategies that can help you manage fatigue are to prioritize and breaking up tasks. Integrative therapies, including the acupuncture may help with management of fatigue. Please discuss any fatigue related concerns with your health care provider. PERIPHERAL NEUROPATHY: You may experience peripheral neuropathy, or damage to nerves, as a result of cancer treatment. This may be temporary or become permanent. It can cause numbness and tingling, pain, weakness, cramping, and burning. Acupuncture may help with symptom management and medication can also be prescribed. Please discuss any neuropathy-related symptoms or concerns PSYCHOSOCIAL ISSUES: When treatment has been completed, many survivors struggle with fear of reoccurrence, depression and/or anxiety, social/family relationships, and employment/financial health. Staying active is good for your state of mind. It can aid in reducing depression and fatigue and increase self- esteem. Survivorship should discuss any issues that are decreasing their equality of life oremotional well-being with their providers. Survivorship education and support programs are available, and a referral to a mental health counselor may also be beneficial. PAIN: There are different techniques that can help treatments pain. There are relaxation techniques, physical therapy, and non-narcotic pain medication. Talk with your medical provider if you are experiencing any pain. Secondary cancer risk: typically within or at the edges of prior radiation treatment field. Reinforced the following: ?? Skin: Practice on safety including regular use of SPF 30+ sunscreen. Report any new lumps or skin changes. Annual skin exam by PCP or stranding supervisor. ?? Lung: Patient at increased risk if chest radiation received and or alkylating chemotherapy. The risk is much higher risk in active smoker. Avoid smoking secondhand smoke and report any respiratorychanges. ?? Sarcoma: Reports any new lumps, especially arising in or at edge of a prior radiation field. ?? AML/MDS due to chemotherapy and/or autologous stem cell transplant. Report any significant increase in fatigue, pallor, petechiae (small red rash), and or bone pains of prior radiation field. HEALTH BEHAVIORS: All cancer survivors are encouraged to pursue a healthy lifestyle as a way to improve their overallhealth that includes, but is not limited to the following: ?? Primary Care Provider (PCP): You should follow up on a regular basis with your PCP for health maintenance, routine screenings, immunizations and preventative care. ?? Weight management: The goal is to achieve and maintain a healthy body weight. Exercise and diet are critical components in achieving this goal. ?? Exercise: Movement is essential. Avoid inactivity and return to normal daily activities as soon as possible following diagnosis. Aim to exercise at least 150 minutes per week. Include strength training exercises at least twice per week ?? Sleep: Establish sleep schedule. Relaxation techniques, and avoid stimulants close to bedtime. ?? Nutrition: Eat a diet that is high in vegetables, fruits, whole grains and lean meats. Try to limit the amount of processed and red meat, as well as refined and processed grain and sugary foods, and fried foods. ?? Smoking: Avoid smoking. This includes tobacco products, Vape, and e-cigs. Your provider can offer smoking cessation programs to help you quit if you smoke. ?? Alcohol: Limit alcohol intake to one drink or less per day for women or less than two for men. ?? Sun Exposure: Reinforced the importance to apply sun screen with SPF 30+ with prolonged sun exposure during all seasons. Reasons to Call: Please call your provider if you experience chronic pain, chronic numbness/tingling, cough that doesn't go away, change in shortness of breath, bone pain, new lumps, weight loss, abdominal pain, fatigue, or any new unusual and/or persistent symptoms. Follow up and Surveillance: You will have at least 5 years of close follow up. Routine lab work monitoring is not recommended unless clinically indicated. A CT scan of your chest every 6 months for 2 years and then annually to complete 5 years of surveillance. You will be scheduled to follow up with your Oncologist after every CT scan. Resources: Here are some recommended resources that could be helpful: ??? [place] [employer]: www.cancer.org or call ??? [facility]: www.cancer.org/survivorshipcenter ??? [employer] [facility]: www.[employer].org ??? Survivor's Journey https://www.survivorjourneys.org/ Note: Important Caution This is a summary document whose purpose is to review the highlights of the cancer chemotherapy treatment plan for this patient. This does not replace the information available in the medical record,a complete medical history provided by the patient, examination and diagnostic information, or educational materials that describe strategies for coping with cancer and adjuvant chemotherapy in detail. Both medical science and an individual's health care needs change and therefore this document hiscurrent only as of the date of preparation. This summary document does not prescribe or recommend any particular medical treatment or care for cancer or other disease and does not substitute for the i ndependent medical judgment of the treating professional. documented in this encounter Plan of Treatment Not on file documented as of this encounter Visit Diagnoses Not on filedocumented in this encounter Care Teams Mainframe Architect Relationship Specialty Start Date End Date Ac Garcia DO [address] [place] [phone] PCP - General Internal Medicine 07/30/16 documented as of this encounter
--- OUTSIDE RECORDS SUMMARY | 2024-04-14 10:34 | XMS_ITS ---
Author Organization [facility] Address [address] [place] [phone] Care Team Providers Care Business Support Name Role Phone Jose (RETIRED) Kimmy WAGNER Primary Care Provid er Unavailable Kimmy Plata Unavailable [phone] REASON FOR VISIT screening,fam hx colon ca Problems Problem Type SNOMED Code ICD Code Onset Dates Problem Status W/U Status Risk Notes Problem Diverticular disease of colon (698449432) Diverticulosis of large intestine without perforation or abscess without bleeding (K57.30) Active confirmed Encounters Encounter Location Date Provider Diagnosis [facility] [place] [facility] Outpatient [address], [place] [id number] 11/11/2022 Kimmy Plata Encounter for scre ening colonoscopy Z12.11 ; Colon polyp K63.5 ; Diverticulosis of large intestine without perforation or abscess without bleeding K57.30 and Other hemorrhoids K64.8 Assessments Encounter Date Diagnosis (ICD Code) Assessment Notes Treatment Notes Treatment Clinical Notes Section Notes 11/11/2022 Encounter for screening colonoscopy (ICD-10 - Z12.11) 11/11/2022 Colon polyp (ICD-10 - K63.5) 11/11/2022 Diverticulosis of large intestine without perforation or abscess without bleeding (ICD-10 - K57.30) 11/11/2022 Other hemorrhoids (ICD-10 - K64.8) Plan Of Treatment No Information Progress Notes * KIMMY LEW[birth year]DOB:[birth year] (73 yo M)Acc No.[id number]:11/11/2022 COLON WITH MAC Patient:?KIMMY LEWIS Provider:?Kimym Plata MD :1950???Age:72 Y???Sex:Male Roel e:11/11/2022 Address:[address] [place] [address] Pcp:Kimmy Garcia (RETIRE D), DO Subjective: * Chief Complaints: * ???1. Screening,fam hx colon ca. * Medical History:? Objective: * Vitals:? Assessment: * Assessment: 1.?Encounter for screening c olonoscopy - Z12.11 (Primary)???2.?Colon polyp - K63.5???3.?Diverticulosis of large intestine without perforation or abscess without bleeding - K57.30???4.?Other hemorrhoids - K64.8??? Plan: * Treatment: * Procedure Codes:?98930 LESIO N REMOVAL COLONOSCOPY, Modifiers: 33 * * The named appointment provid er may or may not be the originator of this progress note, and it is not deemed complete until electronically signed by the appointment provider. Sign off status: Pending * Provider:?Kimmy Plata MD Date:? 023 Generated for Jerica pavon/Yang/eTransmitting on:?04/14/2024 10:33 AM EST
--- OUTSIDE RECORDS SUMMARY | 2024-04-14 10:34 | XMS_ITS | Clinical Summary ---
Author Organization [facility] Address [address] [place] [phone] Care Team Providers Care Optometrist Assistant Name Role Phone Ac Garcia DO Primary Care Provider [phone] Allergies No known active allergies Medications atorvastatin (LIPITOR) 10 mg tablet Take 10 mg by mouth every evening. Active cholecalciferol (VITAMIN D-3) 50 mcg (2,000 unit) capsule TAKE ONE CAPSULE BY MOUTH ONCE A DAY FOR 90 DAYS 07/25/2016 Active fluticasone propionate (FLONASE) 50 mcg/actuation nasal spray USE 1 SPRAY IN EACH NOSTRIL ONCE A DAY 07/15/2016 Active Active Problems Problem Noted Date Diagnosed Date Malignant neoplasm of lower lobe of right lung 0 08/05/2016 Immunizations Name Administration Dates Next Due Moderna SARS-CoV-2 COVID-19, mRNA, LNP-S, preservative free 06/14/2020,05/17/2020 Surgical History Surgery Date Site/Laterality Comments OTHER SURGICAL HISTORY Right PROCEDURE: [place] RMVL LUNG OTHER THAN PNEUMONECTOMY 1 LOBE LOBECT; COMMENT: s/p RLL lobectomy 2017 Medical History Medical History Date Comments Lung cancer ([facility]) 2017 DX:Lung ca ncer ([facility]) Family History Medical History Relation Name Comments No Known Problems Father No Known Problems Mother Relation Name Status Comments Brother Alive Father Mother Social History Tobacco Use Types Packs/Day Years Used Date Smoking Tobacco: Former Cigarettes Q uit: 02/11/2012 Smokeless Tobacco: Never Alcohol Use Standard Drinks/Week Comments Not Currently 0 (1 standard drink = 0.6 oz pur e alcohol) Sex and Gender Information Value Date Recorded Sex Assigned at Not on file Legal Sex Male 10:02 AM EST Gender Identity Not on file Sexual Orientation Not on file Obstetrics History Last Filed Vital Signs Vital Sign Reading Time Taken Comments Blood Pressure 129/85 08/18/2023 1:57 PM EDT Sit ting L Arm Pulse 109 08/18/2023 1:57 PM EDT Temperature - - Respiratory Rate - - Oxygen Saturation - - Inhaled Oxygen Concentration - - Weight 117 kg (259 lb) 08/18/2023 1:57 PM EDT Height 190.5 cm (6' 3 ) 08/18/2023 1:57 PM EDT Body Mass Index 32.37 08/18/2023 1:57 PM EDT Plan of Treatment Health Maintenance Due Date Last Done Comments DTaP,Tdap,and Td Vaccines (1 - Tdap) 1968 Pneumococcal Vaccine: 50+ Years (1 of 2 - PCV) 1968 Zoster Vaccines (1 of 2) 1968 COVID-19 Vaccine (3 - Modern a risk series) 07/12/2020 06/14/2020, 05/17/2020 Abdominal Aortic Aneurysm (AAA) Screen 01/17/2022 Cholesterol Screening (Lipid Panel) 01/17/2022 Colorectal Cancer Screening: Colonoscopy 01/17/2022 Depression Screening 01/17/2022 Falls Risk Assessment 01/17/2022 Hepatitis C Screening 01/17/2022 Lung Cancer Screening (Low Dose CT) 01/17/2022 Social Influencers of Health Screening 01/17/2022 Influenza Vaccine (#1) 2023 RSV Immunization Patients 60 + Years Old (1 - 1-dose 75+ series) 2024 HIB Vaccines Aged Out No longer eligi ble based on patient's age to complete this topic HPV Vaccines Aged Out No longer eligi ble based on patient's age to complete this topic Hepatitis A Vaccines Aged Out No long er eligible based on patient's age to complete this topic Hepatitis B Vaccines Aged Out No long er eligible based on patient's age to complete this topic IPV Vaccines Aged Out No longer eligi ble based on patient's age to complete this topic MMR Vaccines Aged Out No longer eligi ble based on patient's age to complete this topic Meningococcal ACWY Vaccine Aged Out N o longer eligible based on patient's age to complete this topic Meningococcal B Vacine Aged Out No lo nger eligible based on patient's age to complete this topic RSV Immunization Patients Under 20 months Aged Out No longer eligible b ased on patient's age to complete this topic Varicella Vaccines Aged Out No longer eligible based on patient's age to complete this topic Advance Directives Documents on File Type Date Recorded Patient Residential Director Expl anation Health Care Decision (hx) 06/25/2022 AD RAMIREZ DIRECTIVE Health Care Decision (hx) 06/25/2022 AD RAMIREZ DIRECTIVE Care Teams Optometrist Assistant Relationship Specialty Start Date End Date Ac Garcia DO [address] [place] [phone] PCP - General 05/29/16
--- OUTSIDE RECORDS SUMMARY | 2024-04-14 10:34 | XMS_ITS | Clinical Summary ---
Author Organization [facility] Address [address] [place] [address] Care Team Providers Care Dish Up Person Name Role Phone Ac Garcia Primary Care Provider [phone] Allergies No known active allergies Medications Medication Sig Dispensed Refills Start Date End Date Status D3 SUPER STRENGTH 2000 UNITS CAPS TAKE ONE CAPSULE BY MOUTH ONCE A DAY FOR 90 DAYS 3 07/25/2016 Active fluticasone (FLONASE) 50 MCG/ACT nasal spray USE 1 SPRAY IN EACH NOSTRIL ONCE A DAY 3 07/15/2016 Active atorvastatin (LIPITOR) tablet 10 mg Take 1 tablet (10 mg total) by mouth every evening. 0 Active tamsulosin (FLOMAX) 0.4 MG CAPS Take 1 capsule (0.4 mg total) by mouth daily. 0 Active Multiple Vitamin (MULTI-VITAMIN PO) Take by mouth. 0 Ac tive Active Problems Problem Noted Date Diagnosed Date Malignant neoplasm of lower lobe of right lung 0 08/05/2016 Cancer Staging:Clinical stage from 07/16/2016:Stage IIIA(T3, N2, M0) - Signed by Bethanie Ramires MD on 08/06/2016 Family History Medical History Relation Name Comments Cancer Mother Cancer Paternal Aunt Relation Name Status Comments Mother ovarian ca dece ased at 72 Paternal Aunt unknown cancer Social History Tobacco Use Types Packs/Day Years [...] file Not on file Not on file Last Filed Vital Signs Vital Sign Reading Time Taken Comments Blood Pressure 130/85 07/29/2023 9:02 AM EDT Pulse 103 07/29/2023 9:02 AM EDT Temperature 36.5 ??C (97.7 ??F) 07/29/2023 9:02 AM ED T Respiratory Rate - - Oxygen Saturation 97% 07/29/2023 9:02 AM EDT Inhaled Oxygen Concentration - - Weight 116.6 kg (257 lb) 07/29/2023 9:02 AM EDT Height 190.5 cm (6' 3 ) 07/29/2023 9:02 AM EDT Body Mass Index 32.12 07/29/2023 9:02 AM EDT Plan of Treatment Health Maintenance Due Date Last Done Comments Hepatitis C Screening 1950 Lung Cancer Screening (Low Dose CT) 1950 Pneumococcal Vaccine (1 of 2 - PCV) 04/27/1955 Depression Screening 1961 Preventative Health Evaluation 04/27/1967 DTap / Tdap / Td (1 - Tdap) 1968 Shingrix-Zoster Vaccine (1 o f 2) 1968 Colon Cancer Screening (Colonoscopy) 1994 Fall Risk Assessment 2014 COVID-19 Vaccine (3 - Modern a risk series) 07/12/2020 06/14/2020, 05/17/2020 Influenza Vaccine (#1) 2023 RSV Adult > 60+ Yrs or (1 - 1-dose 75+ series) 2024 Hepatitis B Vaccines Aged Out No long er eligible based on patient's age to complete this topic RSV Ped < 20 months Aged Out No longe r eligible based on patient's age to complete this topic Care Teams Dish Up Person Relationship Specialty Start Date End Date Ac Garcia DO [address] [place] [phone] PCP - General Internal Medicine 07/30/16
--- OUTSIDE RECORDS SUMMARY | 2024-04-14 10:34 | XMS_ITS | Patient Health Record ---
Author Organization [facility] Address [address] [place] [address] Care Team Providers Care Mechanical Handyman Name Role Phone Jose (RETIRED) Kimmy WAGNER Primary Care Provid er Unavailable SherlynKimmy Unavailable [phone] Allergies No Known Allergies Reason For Referral No Information Medications Medication SIG (Take, Route, Frequency, Duration) Notes Start Date End Date Status MiraLax (colon prep) 17 GM/SCOOP 1 238 Gm bottle mixed with Gatorade or Crystal Light Orally begin at 5:00 p.m. the day before the procedure for 1 day 08/16/2022 Active Vitamin D3 25 MCG (1000 UT) 1 tablet Ora lly Once a day for 30 day(s) 08/15/2022 Active Dulcolax (colon prep) 5 MG take at 3:00 p.m and 7:00p.m. Orally two tablets twice a day for one day for 1 day 08/16/2022 Active Tamsulosin HCl Activ e Atorvastatin Calcium 10 MG Oral for 90 Active Fluticasone Propionate 50 MCG/ACT Nasal for 90 Active Social History Tobacco Use: Social History Observation Description Date Details (start date - stop date) Former Smoker NA - NA Tobacco Use/Smoking Question Answer Notes Patient is a former smoker How long has it been since you last smoked? > 10 years Alcohol Screen Question Answer Notes Did you have a drink containing alcohol in the p ast year? No Points 0 Interpretation Negative Section Notes: Nonsmoker x 6 months; 4 beer s QD Nonsmoker; no alcohol Problems Problem Type SNOMED Code ICD Code Onset Dates Problem Status W/U Status Risk Notes Problem [id number] Colon cancer screening (Z12.11) Active confirmed Problem Diverticular disease of colon (362283975) Diverticulosis of large intestine without perforation or abscess without bleeding (K57.30) Active confirmed Problem [id number] Preprocedural examination (Z01.818) Active confirmed Problem 080285970 Family history o f colon cancer (Z80.0) Active confirmed Plan Of Treatment Pending Test Test Name Order Date Pathology 11/11/2022 Future Test Test Name Order Date COLONOSCOPY 04/10/2012 COLONOSCOPY 08/15/2022 Insurance Providers Payer Name Payer Address Payer Phone Subscriber Number Group Number Insured Name Patient Relationship to Insured Coverage Start Date Coverage End Date [facility] [address] [place], [place] [id number] KIMMY LEWIS Self - patient is the insured MEDICARE OF [place] [address] [facility] [place] [address] [phone] [id number] KIMMY LEWIS Self - patient is the insured Medical (General) History Medical History History ICD Code Colonoscopy 05/08/2007--neg except hyperplastic polyps, diverticulosis, and internal hemorrhoids Denies [place],DM,CVA,renal disease Back pain-disc disease Right lung cancer in 2017--had partial l uriel resection, chemo, and XRT Negative colonoscopy in 05/2012 except fo r hyperplastic polyps Hyperlipidemia Surgical History Surgery Date(Month/Year) Cataracts Right lung surgery for cancer as above
== END 2024-04-14 09:48 | disposition home or self-care (01) ==
LOC: HO.HMCSH 09:25
PROVIDERS: PCP Internal Medicine; Visit Provider Physician Assistant Medical
DX: Z00.00 Encounter for general adult medical examination without abnormal findings (principal); H91.93 Unspecified hearing loss, bilateral; E78.00 Pure hypercholesterolemia, unspecified; N40.0 Benign prostatic hyperplasia without lower urinary tract symptoms; H26.9 Unspecified cataract; R31.9 Hematuria, unspecified; E55.9 Vitamin D deficiency, unspecified; M54.9 Dorsalgia, unspecified; C34.90 Malignant neoplasm of unspecified part of unspecified bronchus or lung; M10.9 Gout, unspecified; E78.5 Hyperlipidemia, unspecified; M17.12 Unilateral primary osteoarthritis, left knee; E66.811 Obesity, class 1; Z68.33 Body mass index [BMI] 33.0-33.9, adult; F10.20 Alcohol dependence, uncomplicated

== ENCOUNTER 2024-04-21 09:41 | Outpatient (AMB) | payer MEDICARE, SELFPAY ==
--- NOTE | 2024-04-21 09:47 | MHC.PC.OV ---
Vital Signs 04/21/24 09:55 Height 6 ft 1.75 in Weight 261 lb BMI 33.7 BP 124/66 Blood Pressure Location Rt brachial Pulse 99 Pulse Source Pulse Oximeter Temp 97.0 F Pulse Oximetry (%) 95 Intake Visit Reasons: diabetic teaching Intake Note: no other issues Allergies No Known Allergies [No Known Allergies*] Allergy (Verified 04/21/24 10:27) Medication List - Last Reconciled 04/21/24 by Kasia Peters PA-C alcohol swabs (Alcohol Pads) 1 pad topical DAILY atorvastatin 10 mg PO DAILY blood sugar diagnostic (Accu-Chek Guide test strips) Patient to check blood glucose level TID at breakfast, lunch and dinner. blood-glucose meter (Accu-Chek Guide Glucose Meter) Patient to check blood glucose level TID at breakfast, lunch and dinner. cholecalciferol (vitamin D3) 50 mcg PO DAILY fluticasone propionate 50 mcg/actuation 1 spray intranasal DAILY ibuprofen 800 mg PO TID lancets (Accu-Chek Fastclix Lancet Drum) As directed lancing device with lancets (Accu-Chek FastClix Lancing Device kit) Patient to check blood glucose level TID at breakfast, lunch and dinner. metformin 500 mg PO DAILY multivitamin 1 tab PO DAILY tamsulosin 0.4 mg PO DAILY [facility] Medical History Type 2 diabetes mellitus with hemoglobin A1c goal of less than 7.0% New onset type 2 diabetes mellitus Class 1 obesity with body mass index (BMI) of 33.0 to 33.9 in adult Decreased hearing of both ears History of intracranial hemorrhage Mild hypercholesterolemia BPH (benign prostatic hyperplasia) Cataract Alcoholism Hematuria Vitamin D deficiency Back pain Hyperlipidemia Gout Lung cancer Surgical History Hx of cataract extraction History of lung surgery Hx of colonoscopy (~11/11/22) Social History Alcohol intake: never Comment: WALKING NEW DOG 2 WKS AGO Patient Tobacco Use Status: Tobacco use Unknown Current occupational status: retired Physical exam (Primary Care) Vital Signs: Last Vital Signs Temp 97.0 F 04/21/24 09:55 Pulse 99 04/21/24 09:55 BP 124/66 04/21/24 09:55 Pulse Ox 95 04/21/24 09:55 Care Plan Goal for BP management: <130/80 at goal BMI result Body Mass Index 33.7 BMI Assessment/Plan discussion: High BMI High, discussed plan: lifestyle, weight reduction, dietary, physical activity and alcohol moderation Tobacco/Smoking Status: Tobacco use Status Patient Tobacco Use Status Tobacco use Unknown 04/21/24 09:48 Coding Level of Care Code Est Pt Level 2 (25860) Diagnoses Type 2 diabetes mellitus with hemoglobin A1c goal of less than 7.0% E11.9 New onset type 2 diabetes mellitus E11.9 Assessment & Plan Assessment & Plan (1) Type 2 diabetes mellitus with hemoglobin A1c goal of less than 7.0%: Code(s): E11.9 - Type 2 diabetes mellitus without complications Category: Medical Plan: Patient to continue metformin daily. Patient to monitor his blood glucose level 3 times a day at breakfast lunch and dinner. Patient to return with monitor and the rest of the equipment for diabetic teaching. Condition is chronic and stable continue to monitor. (2) New onset type 2 diabetes mellitus: Code(s): E11.9 - Type 2 diabetes mellitus without complications Category: Medical Plan: Patient to continue metformin daily. Patient to monitor his blood glucose level 3 times a day at breakfast lunch and dinner. Patient to return with monitor and the rest of the equipment for diabetic teaching. Condition is chronic and stable continue to monitor. Plan Plan Patient was informed and verbally consented to the use of an ambient scribe for clinic note documentation during this visit. 1. Type 2 Diabetes Mellitus The patient has recently been started on Metformin 500 mg daily for his new diagnosis of Type 2 Diabetes Mellitus. Currently, there is a prescription delivery issue preventing home glucose monitoring. The pharmacy error will be corrected, and the necessary glucose monitoring equipment should be obtained to facilitate proper diabetic education. Once the equipment is available, we will emphasize home glucose monitoring and provide detailed instructions. The patient is to continue taking the Metformin as prescribed, with plans for follow-up once monitoring is in place. Discussion Notes During this visit, I discussed with the patient the management and treatment of his recently diagnosed Type 2 Diabetes Mellitus. We reviewed the initiation of Metformin 500 mg once daily and the importance of blood glucose monitoring. Unfortunately, due to a pharmacy error, the necessary glucose monitoring equipment was not provided. Plans are in motion to resolve this by resending the prescription to the pharmacy for proper fulfillment. Once received, I will provide the patient with detailed instructions on glucose monitoring techniques. We highlighted the importance of adherence to the current medication and monitoring regimen and will have the patient return for diabetic education once equipment issues are resolved. We also addressed the need for re-testing and adjustment of treatment if necessary. Medications: Changed From blood-glucose meter (Accu-Chek Guide Glucose Meter) As directed 1 ea 0RF E11.9 - Type 2 diabetes mellitus without complications To blood-glucose meter (Accu-Chek Guide Glucose Meter) Patient to check blood glucose level TID at breakfast, lunch and dinner. 1 ea 0RF E11.9 - Type 2 diabetes mellitus without complications From lancing device with lancets (Accu-Chek FastClix Lancing Device kit) As directed 1 ea 0RF E11.9 - Type 2 diabetes mellitus without complications To lancing device with lancets (Accu-Chek FastClix Lancing Device kit) Patient to check blood glucose level TID at breakfast, lunch and dinner. 1 ea 0RF E11.9 - Type 2 diabetes mellitus without complications From blood sugar diagnostic (Accu-Chek Guide test strips) As directed 25 ea 0RF To blood sugar diagnostic (Accu-Chek Guide test strips) Patient to check blood glucose level TID at breakfast, lunch and dinner. 100 ea 0RF Patient Instructions: - Continue taking Metformin 500 mg daily as prescribed. - Follow up with the pharmacy to ensure receipt of the glucose meter, Lancet drum, and strips. - Once the monitoring equipment is received, call or visit to receive a demonstration on how to monitor blood glucose levels. - Monitor blood glucose levels three times a day as instructed once equipment is available: at breakfast, lunch, and dinner. - Contact us if there are any issues or confusion with the equipment once obtained. - Plan to follow up again in three months for evaluation of diabetic management progress. Scribe Plan - Not visible on output: History of Present Illness The patient is a 73-year-old male presenting with a new diagnosis of Type 2 Diabetes Mellitus. The current management plan includes Metformin once daily, which was initiated a week ago. The patient was supposed to receive a glucose meter, Lancet drum, and strips to aid in home glucose monitoring. However, due to a pharmacy error, the patient only received the Lancet drum, preventing necessary diabetic education and monitoring at home. The patient reports feeling well overall and is compliant with the Metformin regimen. The primary challenge faced is facilitating proper diabetic management education once the needed equipment is obtained from the pharmacy. Review of Systems - Endocrine: Reports feeling pretty good. - Endocrine: Reports new diagnosis of Type 2 Diabetes Mellitus. Physical Exam Appearance: Alert. Oriented X3. No acute distress. Head: Normal external exam. Normocephalic. Atraumatic. Eyes: Pupils are equal, round, and reactive to light. Extraocular movements intact. Conjunctiva and sclera normal. Eyelids normal. Throat: Pharynx normal. Uvula midline. Moist mucous membranes. Neck: Normal inspection. Neck supple. Full range of motion. Cardiovascular: Normal heart rate and rhythm. Respiratory: No respiratory distress. Painless inspiration. Back: Full range of motion noted. Skin: Skin warm and dry. Normal skin color. Normal skin turgor. No rashes/lesions/lacerations noted. Extremities: Extremities exhibit normal range of motion. Neuro: Oriented X 3. No motor deficit. No sensory deficit. Reflexes normal. Results - a1C level 7.0
[2024-04-21 09:55] VITALS: BP 124/66; PULSE 99; TEMP 36.1; O2SAT 95; BMI 33.7
--- OUTSIDE RECORDS SUMMARY | 2024-04-21 10:41 | XMS_ITS | Clinical Summary ---
Author Organization [facility] Address [address] [place] [address] Care Team Providers Care Semiconductor Processing Group Leader Name Role Phone Ac Garcia Primary Care Provider [phone] Allergies No known active allergies Medications Medication [...] age to complete this topic Care Teams Semiconductor Processing Group Leader Relationship Specialty Start Date End Date Ac Garcia DO [address] [place] [phone] PCP - General Internal Medicine 07/30/16
--- OUTSIDE RECORDS SUMMARY | 2024-04-21 10:41 | XMS_ITS | Clinical Summary ---
Author Organization [facility] Address [address] [place] [phone] Phone Care Team Providers Care Racquet Maker Name Role Phone JoseAc mohan Primary Care Provider [phone] Allergies No known active allergies Medications atorvastatin [...] Site/Laterality Comments OTHER SURGICAL HISTORY Right PROCEDURE: [place] RMVL LUNG OTHER THAN PNEUMONECTOMY 1 LOBE LOBECT; COMMENT: s/p RLL lobectomy 2017 Medical History Medical History Date Comments Lung cancer ([facility]/HCC) 2017 DX:Lung ca ncer ([facility]) Family History Medical History Relation [...] Lung Cancer Screening (Low Dose CT) 01/17/2022 Medicare Annual Wellness Visit 01/17/2022 Social Influencers of Health Screening 01/17/2022 [...] on patient's age to complete this topic Insurance BLUE CROSS - [place] MEDICARE ADVANTAGE Advance Directives Documents on File Type Date Recorded Patient Community Health Counselor Expl anation Health Care Decision (hx) 06/25/2022 AD RAMIREZ DIRECTIVE Health Care Decision (hx) 06/25/2022 AD RAMIREZ DIRECTIVE Care Teams Racquet Maker Relationship Specialty Start Date End Date Ac Garcia DO [address] [place] [phone] PCP - General 05/29/16
--- OUTSIDE RECORDS SUMMARY | 2024-04-21 10:41 | XMS_ITS ---
Author Organization [facility] Address [address] [place] [phone] Care Team Providers Care Machine Operator Helper Name Role Phone Jose (RETIRED) Kimmy WAGNER Primary Care Provid er Unavailable Kimmy Plata Unavailable [phone] REASON FOR VISIT screening,fam hx colon ca Problems Problem Type SNOMED Code ICD Code Onset Dates Problem Status W/U Status Risk Notes Problem Diverticular disease of colon (690168926) Diverticulosis of large intestine without perforation or abscess without bleeding (K57.30) Active confirmed Encounters Encounter Location Date Provider Diagnosis [facility] Outpatient [address] [place], [place] [id number] 11/11/2022 Kimmy Plata Encounter for scre ening [...] * KIMMY LEW[birth year]DOB:[birth year] (73 yo M)Acc No.[id number]:11/11/2022 COLON WITH MAC Patient:?KIMMY LEWIS Provider:?Kimmy Plata MD :1950???Age:72 Y???Sex:Male Roel e:11/11/2022 Address:[address] [place] [address] Pcp:Kimmy Garcia (RETIRE D), DO Subjective: * Chief Complaints: * ???1. Screening,fam hx colon ca. * Medical History:? Objective: * Vitals:? Assessment: * Assessment: 1.?Encounter for screening c olonoscopy - Z12.11 (Primary)???2.?Colon polyp - K63.5???3.?Diverticulosis of large intestine without perforation or abscess without bleeding - K57.30???4.?Other hemorrhoids - K64.8??? Plan: * Treatment: * Procedure Codes:?70670 LESIO N REMOVAL COLONOSCOPY, Modifiers: 33 * * The named appointment provid er may or may not be the originator of this progress note, and it is not deemed complete until electronically signed by the appointment provider. Sign off status: Pending * Provider:?Kimmy Plata MD Date:? 023 Generated for Jerica pavon/Yang/eTransmitting on:?04/21/2024 10:41 AM EDT
--- OUTSIDE RECORDS SUMMARY | 2024-04-21 10:41 | XMS_ITS | Encounter Summary ---
Author Organization [facility] Address [address] [place] [address] Care Team Providers Care Services Manager Name Role Phone Ac Garcia DO Primary Care Provider [phone] Encounter Details Date Type Department Care Team Description 12/12/2017 Nurse Only [facility] Oncology Services [address] [place] [address] Loren Crain, RN Social History Tobacco Use [...] this encounter Progress Notes * Loren Crain, MARKETING PRODUCTION SPECIALIST - 12/12/2017 2:50 PM EDT Survivorship Visit [...] provided him with a copy of the [place] [employer] Cancers Survivorship Guide Book and encouraged him to call with any additional questions or concerns. Please see Survivorship Care Plan below. [facility] Survivorship Treatment Plan Ac H[place] 1950 This Survivorship plan has been created for you by your oncology team. It contains information on how to contact her team, a summary of your diagnosis and treatment, recommendations for your follow-up care as well as information about maintaining a healthy style. Care Team: Surgeon Dr. Sukhjinder Whitney [phone] Danuta Hernandez [phone] 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 Annual skin exam by PCP or human services supervisor. ?? Lung: Patient at increased risk [...] recommended resources that could be helpful: ??? [employer]: www.cancer.org or call ??? The Survivorship Center: www.cancer.org/survivorshipcenter ??? [employer]: www.[employer].org ??? Survivor's Journey [email or web address] Note: Important Caution [...] on filedocumented in this encounter Care Teams Services Manager Relationship Specialty Start Date End Date cA Garcia DO [address] [place] [phone] PCP - General Internal Medicine 07/30/16 documented as of this encounter
--- OUTSIDE RECORDS SUMMARY | 2024-04-21 10:42 | XMS_ITS | Patient Health Record ---
Author Organization [facility] Address [address] [place] [address] Care Team Providers Care Electrical Controls Assembler Name Role Phone Jose (RETIRED) Kimmy WAGNER Primary Care Provid er Unavailable SherlynKimmy Unavailable [phone] Allergies No Known Allergies Reason For Referral [...] Problem Status W/U Status Risk Notes Problem [id number] Colon cancer screening (Z12.11) Active confirmed Problem Diverticular disease of colon (082121667) Diverticulosis of large intestine without perforation or abscess without bleeding (K57.30) Active confirmed Problem [id number] Preprocedural examination (Z01.818) Active confirmed Problem 094422640 Family history o f colon cancer (Z80.0) Active confirmed Plan Of Treatment Pending Test Test Name Order Date Pathology 11/11/2022 Future Test Test Name Order Date COLONOSCOPY 04/10/2012 COLONOSCOPY 08/15/2022 Insurance Providers Payer Name Payer Address Payer Phone Subscriber Number Group Number Insured Name Patient Relationship to Insured Coverage Start Date Coverage End Date [facility] [address] [place], [place] [id number] KIMMY LEWIS Self - patient is the insured MEDICARE OF [place] [address] [place] [address] [phone] [id number] KIMMY LEWIS Self - patient is the insured Medical (General) History Medical History History ICD Code Colonoscopy 05/08/2007--neg except hyperplastic polyps, diverticulosis, and internal hemorrhoids Denies NV,DM,CVA,renal disease Back pain-disc disease Right lung cancer in 2017--had partial l uriel resection, chemo, and XRT Negative colonoscopy in 05/2012 except fo r hyperplastic polyps Hyperlipidemia Surgical History Surgery Date(Month/Year) Cataracts Right lung surgery for cancer as above
== END 2024-04-21 10:27 | disposition home or self-care (01) ==
LOC: HO.HMCSH 09:41
PROVIDERS: PCP Internal Medicine; Visit Provider Physician Assistant Medical
DX: E11.9 Type 2 diabetes mellitus without complications (principal)

== ENCOUNTER → 2024-04-21 09:41 | Outpatient (BNVA) | payer MEDICARE, SELFPAY | PROVIDERS: PCP Internal Medicine; Visit Provider Physician Assistant Medical | DX: E11.9 Type 2 diabetes mellitus without complications (principal) | CPT/HCPCS: 99212 ==

== ENCOUNTER 2024-04-27 11:23 | Outpatient (AMB) | payer MEDICARE, SELFPAY ==
--- NOTE | 2024-04-27 11:26 | MHC.PC.OV ---
Vital Signs 04/27/24 11:31 Height 6 ft 1.75 in Weight 263 lb BMI 34.0 BP 132/66 Blood Pressure Location Rt brachial Pulse 100 Pulse Source Pulse Oximeter Temp 97.0 F Pulse Oximetry (%) 95 Intake Visit Reasons: BS testing instructions Intake Note: no other issues Allergies No Known Allergies [No Known Allergies*] Allergy (Verified 04/27/24 11:54) Medication List - Last Reconciled 04/27/24 by Kasia Peters PA-C alcohol swabs (Alcohol Pads) 1 pad topical DAILY atorvastatin 10 mg PO DAILY blood sugar diagnostic (Accu-Chek Guide test strips) 1 strip miscellaneous TIDWMEAL blood-glucose meter (Accu-Chek Guide Glucose Meter) Patient to check blood glucose level TID at breakfast, lunch and dinner. cholecalciferol (vitamin D3) 50 mcg PO DAILY fluticasone propionate 50 mcg/actuation 1 spray intranasal DAILY ibuprofen 800 mg PO TID lancets (Accu-Chek Fastclix Lancet Drum) As directed lancing device with lancets (Accu-Chek FastClix Lancing Device kit) Patient to check blood glucose level TID at breakfast, lunch and dinner. metformin 500 mg PO DAILY multivitamin 1 tab PO DAILY tamsulosin 0.4 mg PO DAILY PFSH Medical History Type 2 diabetes mellitus with hemoglobin A1c goal of less than 7.0% New onset type 2 diabetes mellitus Class 1 obesity with body mass index (BMI) of 33.0 to 33.9 in adult Decreased hearing of both ears History of intracranial hemorrhage Mild hypercholesterolemia BPH (benign prostatic hyperplasia) Cataract Alcoholism Hematuria Vitamin D deficiency Back pain Hyperlipidemia Gout Lung cancer Surgical History Hx of cataract extraction History of lung surgery Hx of colonoscopy (~11/11/22) Social History Alcohol intake: never Comment: WALKING NEW DOG 2 WKS AGO Patient Tobacco Use Status: Tobacco use Unknown Current occupational status: retired Physical exam (Primary Care) Vital Signs: Last Vital Signs Temp 97.0 F 04/27/24 11:31 Pulse 100 04/27/24 11:31 BP 132/66 03/18/25 11:31 Pulse Ox 95 04/27/24 11:31 Care Plan Goal for BP management: <130/80 at Goal BMI result Body Mass Index 34.0 BMI Assessment/Plan discussion: High BMI High, discussed plan: lifestyle, weight reduction, dietary, physical activity and alcohol moderation Tobacco/Smoking Status: Tobacco use Status Patient Tobacco Use Status Tobacco use Unknown 04/27/24 11:30 Coding Level of Care Code Est Pt Level 3 (13281) Complex EM visit Add On G2211 Diagnoses Type 2 diabetes mellitus with hemoglobin A1c goal of less than 7.0% E11.9 New onset type 2 diabetes mellitus E11.9 Assessment & Plan Assessment & Plan (1) Type 2 diabetes mellitus with hemoglobin A1c goal of less than 7.0%: Code(s): E11.9 - Type 2 diabetes mellitus without complications Category: Medical Plan: Patient with new onset type 2 diabetes. Patient was started on metformin 500 mg daily. Patient is taking as prescribed. Brought in his glucometer, lancets, lancet device and the rest of the material to be taught on how to check his blood glucose level. He reported that he had to pay [id number] due to insurance does not cover for him to assess his blood glucose level 3 times a day. I informed him he should at least check it once a day at least in the morning or before meals. He understands this. Condition is chronic and stable patient understands how to check his blood glucose level and he will return in 3 months for A1c testing (2) New onset type 2 diabetes mellitus: Code(s): E11.9 - Type 2 diabetes mellitus without complications Category: Medical Plan: see above Plan Plan Patient was informed and verbally consented to the use of an ambient scribe for clinic note documentation during this visit. 1. Type 2 Diabetes Mellitus The visit was largely educational, focusing on instructing the patient on proper blood glucose monitoring techniques in light of recent financial challenges with insurance coverage. I provided [id number] guidance on using his glucose meter and supplies efficiently. The patient was advised to limit testing to once daily, preferably in the morning or before meals, to mitigate costs. A follow-up visit was suggested to evaluate his progress and ensure appropriate management of his diabetes within these constraints. Discussion Notes During our discussion, I reviewed with the patient the management of his Type 2 Diabetes Mellitus with a rivera focus on self-monitoring of blood glucose levels. We discussed the limitations imposed by his insurance coverage and strategies to minimize [id number] expenses while maintaining effective diabetes management. I explained the steps and techniques for using glucometers and associated supplies properly. We also explored the importance of consistently logging his blood glucose measurements and adjusting accordingly within the constraints of once-daily testing, recommending either morning or pre-meal checks. I advised him to follow up to ensure his home monitoring is effectively managing his diabetes and facilitating discussion with his insurance for better coverage moving forward. Patient Instructions: Patient Instructions - Test blood glucose levels once a day, either in the morning or before meals. - Use alcohol pads to clean the area before testing. - Record blood glucose readings consistently to monitor diabetes management. - Engage with the insurance company to dispute the supply coverage issue. - Follow up in three months to reassess glucose management effectiveness and discuss supply coverage developments. Scribe Plan - Not visible on output: History of Present Illness The patient is a 74-year-old male presenting with concerns regarding the management of his Type 2 Diabetes Mellitus. Recently, he has faced challenges with his insurance provider concerning coverage for diabetic testing supplies, leading to him incurring [id number]-fochzk expenses that he finds burdensome. The patient expressed a need to understand proper home blood glucose monitoring techniques, especially given the financial constraints placed on him by his insurance policy. He was advised to perform blood glucose tests once daily, either in the morning or prior to meals, to better manage his condition under the current limitations of his insurance coverage. Social History - The patient indicated financial challenges related to insurance coverage for medical supplies. - No further social determinants relevant to the patient's care were discussed. Review of Systems - General: Reports frustration and stress related to insurance issues and financial burdens. Physical Exam Appearance: Alert. Oriented X3. No acute distress. Head: Normal external exam. Normocephalic. Atraumatic. Eyes: Pupils are equal, round, and reactive to light. Extraocular movements intact. Conjunctiva and sclera normal. Eyelids normal. Throat: Moist mucous membranes. Neck: Normal inspection. Neck supple. Full range of motion. Cardiovascular: Normal heart rate and rhythm. Respiratory: No respiratory distress. Painless inspiration. Back: No costovertebral angle tenderness. Full range of motion noted. Skin: Skin warm and dry. Normal skin color. Normal skin turgor. No rashes/lesions/lacerations noted. Extremities: Extremities exhibit normal range of motion. Neuro: Oriented X 3. Normal steady gait.
[2024-04-27 11:31] VITALS: BP 132/66; PULSE 100; TEMP 36.1; O2SAT 95; BMI 34.0
== END 2024-04-27 11:53 | disposition home or self-care (01) ==
LOC: HO.HMCSH 11:23
PROVIDERS: PCP Internal Medicine; Visit Provider Physician Assistant Medical
DX: E11.9 Type 2 diabetes mellitus without complications (principal)

== ENCOUNTER → 2024-04-27 11:23 | Outpatient (BNVA) | payer MEDICARE, SELFPAY | PROVIDERS: PCP Internal Medicine; Visit Provider Physician Assistant Medical | DX: E11.9 Type 2 diabetes mellitus without complications (principal) | CPT/HCPCS: 99212 ==

== ENCOUNTER 2024-07-13 09:00 | Outpatient (AMB) | payer MEDICARE, SELFPAY ==
--- NOTE | 2024-07-13 09:08 | A.OFFPC_ITS ---
Vital Signs 07/13/24 09:37 Height 6 ft 1.75 in Weight 257 lb BMI 33.2 BP 140/72 H Blood Pressure Location Rt brachial Pulse 105 H Pulse Source Pulse Oximeter Temp 97.1 F Pulse Oximetry (%) 96 Intake Visit Reasons: 3 month Follow up Intake Note: would like to discuss if any of his meds causes constipation Allergies No Known Allergies [No Known Allergies*] Allergy (Verified 07/13/24 10:13) Medication List - Last Reconciled 07/13/24 by Kasia Peters PA-C alcohol swabs (Alcohol Pads) 1 pad topical DAILY atorvastatin 10 mg PO DAILY blood sugar diagnostic (Accu-Chek Guide test strips) 1 strip miscellaneous TIDWMEAL blood-glucose meter (Accu-Chek Guide Glucose Meter) Patient to check blood glucose level TID at breakfast, lunch and dinner. cholecalciferol (vitamin D3) 50 mcg PO DAILY fluticasone propionate 50 mcg/actuation 1 spray intranasal DAILY ibuprofen 800 mg PO TID lancets (Accu-Chek Fastclix Lancet Drum) As directed metformin 500 mg PO DAILY multivitamin 1 tab PO DAILY tamsulosin 0.4 mg PO DAILY HPI 3 month Follow up HPI Details The patient is a 74-year-old male presenting for a routine follow-up regarding newly diagnosed Type 2 Diabetes Mellitus. His previous Hemoglobin A1c level was 7.0, indicating diabetic status. He follows up today with improved management attributed to dietary changes, lowering his A1c to 6.5. His daily fasting glucose levels hover between 118 to 130 mg/dL, with occasional spikes noted. He is currently on metformin 500 mg daily taking as prescribed. He experiences episodes of dizziness and flushing associated with forward bending, suggestive of vertigo-like symptoms. His symptoms subside with rest and do not involve spinning sensations or unilateral weakness. 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 - The patient has made dietary changes a imed at managing diabetes, focusing on reduced sugar and carbohydrate intake. [facility] Medical History Type 2 diabetes mellitus with hemoglobin A1c goal of less than 7.0% New onset type 2 diabetes mellitus Class 1 obesity with body mass index (BMI) of 33.0 to 33.9 in adult Decreased hearing of both ears History of intracranial hemorrhage Mild hypercholesterolemia BPH (benign prostatic hyperplasia) Cataract Alcoholism Hematuria Vitamin D deficiency Back pain Hyperlipidemia Gout Lung cancer Surgical History Hx of cataract extraction History of lung surgery Hx of colonoscopy (~11/11/22) Social History Alcohol intake: never Comment: WALKING NEW DOG 2 WKS AGO Patient Tobacco Use Status: Tobacco use Unknown Current occupational status: retired Questionnaire PHQ-9 Over the last 2 weeks, how often have you been bothered by any of the following problems? 1. Little interest or pleasure in doing things: not at all 2. Feeling down, depressed, or hopeless: not at all 3. Trouble falling or staying asleep, or sleeping too much: not at all 4. Feeling tired or having little energy: not at all 5. Poor appetite or overeating: not at all 6. Feeling bad about yourself - or that you are a failure or have let yourself or your family down: not at all 7. Trouble concentrating on things, such as reading the newspaper or watching television: not at all 8. Moving or speaking so slowly that other people could have noticed. Or the o pposite - being so fidgety or restless that you have been moving around a lot more than usual: not at all 9. Thoughts that you would be better off or of hurting yourself in some way: not at all Total score: 0 Depression Screening Interpretation: Negative Depression Screening Done: Yes 88679 - PHQ-9 Billing: Yes Source: Developed by Drs. Ac Conte, Milagros Box, Federico Soto and colleagues, with an educational carmenza from [employer]. Thrive Questionnaire Date Thrive assessed: 07/13/24 I am a: Patient What is your living situation today?: I have a steady place to live Within the past 12 months, did the food you bought not last and you didn't have the money to get more?: Never true Within the past 12 months, did you worry whether your food would run out before you got money to buy more?: Never true Do you have trouble paying for medicines?: No Do you have trouble getting transportation to medical appointments?: No Do you have trouble paying your heating and electricity bill?: No Do you have trouble taking care of your child, family member or friend?: No Do you have trouble with day-to-day activities such as bathing, preparing meals, shopping, managing finances, etc.?: No Are you currently unemployed and looking for a job?: No Are you interested in more education?: No THRIVE Score: 0 AUDIT C Alcohol Use Questionnaire (AUDIT-C) 1. How often do you have a drink containing alcohol?: Never 3. How often do you have six or more drinks on one occasion?: Never Total Score: 0 Score Reviewed/Action Taken: No NYA-7 AMB Questionnaire NYA-7 Date NYA - 7 assessed: 07/13/24 Feeling nervous, anxious, or on edge: 0 = Not at all Not being able to stop or control worryin = Not at all Worrying too much about different things: 0 = Not at all Trouble relaxin = Not at all Being so restless that it is hard to sit still: 0 = Not at all Becoming easily annoyed or irritable: 0 = Not at all Feeling afraid as if something awful might happen: 0 = Not at all Total NYA-7 score (0-4 normal; 5-9 mild; 10-14 moderate; 15-21 severe): 0 Source: Developed by Drs. Ac Conte, Milagros Box, Federico Soto and colleagues, with an educational carmenza from [employer]. NYA-7 Assessment Billing NYA-7 Assessment Tool: NYA-7 Assessment 53186 Review of Systems Const Details: - Cardiovascular: Denies chest pain. - Neurological: Reports dizziness associated with bending forward. Denies unilateral weakness, drooling, and confusion. - Constitutional: Denies feeling weak. - Musculoskeletal: Reports no pain in the neck despite occasional heaviness. Physical exam (Primary Care) Vital Signs: Last Vital Signs Temp 97.1 F 07/13/24 09:37 Pulse 105 H 07/13/24 09:37 BP 140/72 H 07/13/24 09:37 Pulse Ox 96 07/13/24 09:37 Care Plan Goal for BP management: <140/90 at Goal BMI result Body Mass Index 33.2 BMI Assessment/Plan discussion: High BMI High, discussed plan: lifestyle, weight reduction, dietary, physical activity and alcohol moderation Tobacco/Smoking Status: Tobacco use Status Patient Tobacco Use Status Tobacco use Unknown 07/13/24 09:11 PHQ-9: PHQ-9 Score PHQ-9: Total score 0 07/13/24 09:59 Depression Screening Interpretation: Negative Thrive Assessment: Date of Thrive Assessment Date Thrive assessed 07/13/24 07/13/24 09:11 Const Other: Appearance: Alert. Oriented X3. No acute distress. Head: Normal external exam. Normocephalic. Atraumatic. Eyes: Pupils are equal, round, and reactive to light. Extraocular movements intact. Conjunctiva and sclera normal. Eyelids normal. Ears: Right ear shows chronic scarring. Left ear normal. Tympanic membranes normal. Throat: Pharynx normal. Uvula midline. Moist mucous membranes. Neck: Normal inspection. Neck supple. Full range of motion. Cardiovascular: Normal heart rate and rhythm. Heart sound normal. No murmurs noted. Pulses normal throughout. Respiratory: No respiratory distress. Painless inspiration. Breath sounds normal. No wheezes/rales/rhonchi noted. Chest nontender. No accessory muscle usage noted or decreased air movement noted. Back: Full range of motion noted. Skin: Skin warm and dry. Normal skin color. Normal skin turgor. No rashes/lesions/lacerations noted. Extremities: Extremities exhibit normal range of motion. Neuro: Oriented X 3. No motor deficit. No sensory deficit. Reflexes normal. R eports feeling flushed and heavy-headed when bending over, but no dizziness or weakness noted. Results AMB Hemoglobin A1c AMB Hemoglobin A1c 6.5 % Last Edit by CATHY Stone on 07/13/24 09:59 Results Reviewed Results Reviewed: Laboratory Last Values Hgb A1c (Clinic) 6.5 % (4.0-6.0) H 07/13/24 09:52 - Labs: Hemoglobin A1c level decreased from 7.0 to 6.5, indicating improved g lycemic control. - Tests and Diagnostics: Hearing assessment indicated normal hearing with a noted decrease at higher frequencies. Coding Level of Care Code Est Pt Level 4 (90932) Complex EM visit Add On G2211 Diagnoses Type 2 diabetes mellitus with hemoglobin A1c goal of less than 7.0% E11.9 Additional Codes PHQ-9 - 79633 - PHQ-9 Billing: Yes ([id number]) NYA-7 Assessment Billing - NYA-7 Assessment Tool: NYA-7 Assessment 00118 ([id number]) Assessment & Plan Assessment & Plan (1) Type 2 diabetes mellitus with hemoglobin A1c goal of less than 7.0%: Code(s): E11.9 - Type 2 diabetes mellitus without complications Category: Medical Plan: The patient's diabetes management has shown improvement reflected in the decreased A1c. The plan emphasizes the continuation of dietary efforts to sustain control. A reevaluation in three months alongside A1c testing will determine future treatment options, including the potential discontinuation of Metformin if further improvement is sustained. Condition is chronic and stable continue to monitor. Plan Plan Patient was informed and verbally consented to the use of an ambient scribe for clinic note documentation during this visit. 1. Type 2 Diabetes Mellitus The patient's diabetes management has shown improvement reflected in the decreased A1c. The plan emphasizes the continuation of dietary efforts to sustain control. A reevaluation in three months alongside A1c testing will determine future treatment options, including the potential discontinuation of Metformin if further improvement is sustained. 2. Symptoms Consistent With Possible Vertigo The patient's dizziness and associated symptoms were discussed, and continuing audiological support for hearing deficiencies was emphasized. Monitoring these symptoms will help determine if further intervention is required. The plan involves noting any exacerbation or changes in symptoms. I discussed with the patient the improvement in diabetes management evidenced by the reduction in Hemoglobin A1c to 6.5. We outlined the advantage of maintaining these diabetes control strategies to possibly reduce or eliminate medication requirements. For the dizziness and sensation of flushing when bending over, we deliberated the potential causes, such as vertigo, and agreed on monitoring these symptoms to determine if further diagnostic evaluation or treatment is necessary. The patient consented to continue with dietary changes and upcoming follow-ups for diabetes, along with audiological interventions pertained to his hearing issues. We also ensured the patient has contact information for my office for any questions or concerns prior to his next appointment. Orders: Orders AMB Hemoglobin A1c Today E11.9 - Type 2 diabetes mellitus without complications Medications: Discontinued blood sugar diagnostic (Accu-Chek Shanda Plus test strips) Discontinued Reason: Doctor's Order 1 strip miscellaneous QID 200 strips 1RF for diabetes mellitus E11.9 - Type 2 diabetes mellitus without complications Patient Instructions: - Continue with dietary modifications to maintain or further reduce blood glucose levels. - Monitor blood sugar levels routinely and record any abnormal readings. - Be aware of and document any exacerbation in dizziness or associated symptoms. - Follow up with audiology for any hearing issues and consider hearing aids if recommended. - Plan to return in three months for reevaluation and A1c testing. - Contact the office if experiencing any concerns related to diabetes or vertigo-like symptoms before the next appointment.
[2024-07-13 09:37] VITALS: BP 140/72; PULSE 105; TEMP 36.2; O2SAT 96; BMI 33.2
--- OUTSIDE RECORDS SUMMARY | 2024-07-13 09:43 | XMS_ITS | Encounter Summary ---
Author Organization [facility] Address [address] [place] [address] Care Team Providers Care Hematologist Name Role Phone cA Garcia DO Primary Care Provider [phone] Encounter Details Date Type Department Care Team Description 12/12/2017 Nurse Only [facility] Oncology Services [address] [place] [address] Loren Crain, RN Social History Tobacco Use [...] this encounter Progress Notes * Loren Crain, TANK CAR INSPECTOR - 12/12/2017 2:50 PM EDT Survivorship Visit [...] concerns. Please see Survivorship Care Plan below. [facility] Survivorship Treatment Plan Ac [place] 1950 This Survivorship plan has been created for you by your oncology team. It contains information on how to contact her team, a summary of your diagnosis and treatment, recommendations for your follow-up care as well as information about maintaining a healthy style. Care Team: Surgeon Dr. Sukhjinder Whitney [phone] Danuta Hernandez [phone] 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 ?? Lung: Patient at increased risk if [...] recommended resources that could be helpful: ??? [employer] [employer]: www.cancer.org or call ??? [facility]: www.cancer.org/[email or web address] ??? [employer]: [email or web address] ??? Survivor's Journey [email or web address] Note: Important Caution [...] on filedocumented in this encounter Care Teams Hematologist Relationship Specialty Start Date End Date Ac Garcia DO [address] [place] [phone] PCP - General Internal Medicine 07/30/16 documented as of this encounter
== END 2024-07-13 10:09 | disposition home or self-care (01) ==
LOC: HO.HMCSH 09:00
PROVIDERS: PCP Internal Medicine; Visit Provider Physician Assistant Medical
DX: E11.9 Type 2 diabetes mellitus without complications (principal)

== ENCOUNTER → 2024-07-13 09:00 | Outpatient (BNVA) | payer MEDICARE, SELFPAY | PROVIDERS: PCP Internal Medicine; Visit Provider Physician Assistant Medical | DX: E11.9 Type 2 diabetes mellitus without complications (principal); K59.00 Constipation, unspecified; R42 Dizziness and giddiness; Z79.84 Long term (current) use of oral hypoglycemic drugs | CPT/HCPCS: 83036; 96127; 99212 ==

== ENCOUNTER 2024-10-19 08:54 | Outpatient (AMB) | payer MEDICARE, SELFPAY ==
[2024-10-19 08:52] VITALS: BP 109/57; PULSE 110; RESP 16; TEMP 36.7; O2SAT 97; BMI 33.0
--- NOTE | 2024-10-19 08:52 | A.OFFPC_ITS ---
Vital Signs 10/19/24 08:52 Height 6 ft 1.75 in Weight 255 lb BMI 33.0 BP 109/57 L Respiration 16 Pulse 110 H Pulse Source Pulse Oximeter Temp 98.0 F Temp Source Temporal Artery Scan Pulse Oximetry (%) 97 Oxygen Delivery Method Room Air Intake Visit Reasons: 6 month follow up Engineer Third Assistant Required: No Accompanied by: Self / Same As Patient Allergies No Known Allergies (No Known Allergies*) Allergy (Verified 10/19/24 09:52) Medication List - Last Reconciled 10/19/24 by Kasia Peters PA-C alcohol swabs (Alcohol Pads) 1 pad topical DAILY atorvastatin 10 mg PO DAILY blood sugar diagnostic (FreeStyle Lite Strips) check glucose tid before meals blood-glucose meter (FreeStyle Lite Meter kit) check glucose TID before meals cholecalciferol (vitamin D3) 50 mcg PO DAILY fluticasone propionate 50 mcg/actuation 1 spray intranasal DAILY ibuprofen 800 mg PO TID lancets (FreeStyle Lancets) check glucose tid before meals magnesium 500 mg PO DAILY metformin 500 mg PO DAILY multivitamin with folic acid 400 mcg (Daily-Sixto (with folic acid)) 1 tab PO DAILY tamsulosin 0.4 mg PO DAILY Tobacco use date assessed: 10/19/24 Fall risk assessment: No Falls in past year Last assessed Fall Risk: 10/19/24 Dental Screening Dental Screen Date: 10/19/24 Did you have a dental visit in the last 12 months?: No Did you have a dental problem in the last 6 months where you did not have access to dental care?: No Was dental information given to patient?: Patient has dentist (upper dentures) HPI 6 month follow up HPI Details The patient is a 74-year-old male presenting for a follow-up regarding diabetes management and evaluation of elevated heart rate. The patient has a history of Diabetes Mellitus, with a recent A1c level of 6.8, indicating good control of the condition. He is currently on Metformin 500 mg daily, which he is tolerating well without the need for additional medications. The patient monitors his blood glucose levels regularly, with most readings under 160 mg/dL, except for one instance of 172 mg/dL. The patient has been experiencing elevated heart rates, with a pulse of 110 bpm noted during the visit, although he denies any associated symptoms such as dizziness, chest pain, or dyspnea. Auscultation and palpation of the heart revealed normal findings, and an EKG was performed to establish a baseline. Preventative care measures were discussed, including the administration of influenza, shingles, and COVID-19 vaccinations. [facility] Medical History (Updated 10/19/24 @ 10:09 by Kasia Peters PA-C) Preventative health care Tachycardia Type 2 diabetes mellitus with hemoglobin A1c goal of less than 7.0% New onset type 2 diabetes mellitus Class 1 obesity with body mass index (BMI) of 33.0 to 33.9 in adult Decreased hearing of both ears History of intracranial hemorrhage Mild hypercholesterolemia BPH (benign prostatic hyperplasia) Cataract Alcoholism Hematuria Vitamin D deficiency Back pain Hyperlipidemia Gout Lung cancer Surgical History Hx of cataract extraction History of lung surgery Hx of colonoscopy (~11/11/22) Social History Housing: House Alcohol intake: current Alcohol intake frequency: does not drink Patient Tobacco Use Status: Former Tobacco user service: No Current occupational status: retired Cognitive needs: No Hearing needs: Yes (b/l hearing aids) Vision needs: No Questionnaire PHQ-9 Over the last 2 weeks, how often have you been bothered by any of the following problems? 1. Little interest or pleasure in doing things: not at all 2. Feeling down, depressed, or hopeless: not at all 3. Trouble falling or staying asleep, or sleeping too much: not at all 4. Feeling tired or having little energy: not at all 5. Poor appetite or overeating: not at all 6. Feeling bad about yourself - or that you are a failure or have let yourself or your family down: not at all 7. Trouble concentrating on things, such as reading the newspaper or watching television: not at all 8. Moving or speaking so slowly that other people could have noticed. Or the opposite - being so fidgety or restless that you have been moving around a lot more than usual: not at all 9. Thoughts that you would be better off or of hurting yourself in some way: not at all Total score: 0 Depression Screening Interpretation: Negative Depression Screening Done: Yes 80425 - PHQ-9 Billing: Yes Source: Developed by Drs. Ac Conte, Milagros Box, Federico Soto and colleagues, with an educational carmenza from [employer]. Thrive Questionnaire Date Thrive assessed: 07/13/24 I am a: Patient What is your living situation today?: I have a steady place to live Within the past 12 months, did the food you bought not last and you didn't have the money to get more?: Never true Within the past 12 months, did you worry whether your food would run out before you got money to buy more?: Never true Do you have trouble paying for medicines?: No Do you have trouble getting transportation to medical appointments?: No Do you have trouble paying your heating and electricity bill?: No Do you have trouble taking care of your child, family member or friend?: No Do you have trouble with day-to-day activities such as bathing, preparing meals, shopping, managing finances, etc.?: No Are you currently unemployed and looking for a job?: No Are you interested in more education?: No THRIVE Score: 0 AUDIT C Alcohol Use Questionnaire (AUDIT-C) 1. How often do you have a drink containing alcohol?: Never 3. How often do you have six or more drinks on one occasion?: Never Total Score: 0 Score Reviewed/Action Taken: No NYA-7 AMB Questionnaire NYA-7 Date NYA - 7 assessed: 07/13/24 Feeling nervous, anxious, or on edge: 0 = Not at all Not being able to stop or control worryin = Not at all Worrying too much about different things: 0 = Not at all Trouble relaxin = Not at all Being so restless that it is hard to sit still: 0 = Not at all Becoming easily annoyed or irritable: 0 = Not at all Feeling afraid as if something awful might happen: 0 = Not at all Total NYA-7 score (0-4 normal; 5-9 mild; 10-14 moderate; 15-21 severe): 0 Source: Developed by Drs. Ac Conte, Milagros Box, Federico Soto and colleagues, with an educational carmenza from [employer]. NYA-7 Assessment Billing NYA-7 Assessment Tool: NYA-7 Assessment 91245 Review of Systems Const Details: - Cardiovascular: Denies chest pain, dizziness, or dyspnea. - General: Reports feeling tired. All systems reviewed & are unremarkable except as noted in HPI and below Physical exam (Primary Care) Vital Signs: Last Vital Signs Temp 98.0 F 10/19/24 08:52 Pulse 110 H 10/19/24 08:52 Resp 16 10/19/24 08:52 BP 109/57 L 10/19/24 08:52 Pulse Ox 97 10/19/24 08:52 Oxygen Delivery Method Room Air 10/19/24 08:52 Care Plan Goal for BP management: <140/90 at Goal BMI result Body Mass Index 33.0 BMI Assessment/Plan discussion: High BMI High, discussed plan: lifestyle, weight reduction, dietary, physical activity, alcohol moderation and other Tobacco/Smoking Status: Tobacco use Status Tobacco use date assessed 10/19/24 10/19/24 08:54 Patient Tobacco Use Status Former Tobacco user 10/19/24 09:10 PHQ-9: PHQ-9 Score PHQ-9: Total score 0 10/19/24 09:38 Depression Screening Interpretation: Negative Thrive Assessment: Date of Thrive Assessment Date Thrive assessed 07/13/24 10/19/24 08:54 Const Other: Appearance: Alert. Oriented X3. No acute distress. Head: Normal external exam. Normocephalic. Atraumatic. Eyes: Pupils are equal, round, and reactive to light. Extraocular movements intact. Conjunctiva and sclera normal. Eyelids normal. Throat: Pharynx normal. Uvula midline. Moist mucous membranes. Neck: Normal inspection. Neck supple. Full range of motion. Cardiovascular: Elevated heart rate at 110 bpm. Normal heart rhythm. Heart sound normal. No murmurs noted. Pulses normal throughout. Respiratory: No respiratory distress. Painless inspiration. Breath sounds normal. No wheezes/rales/rhonchi noted. No accessory muscle usage noted or decreased air movement noted. Back: Full range of motion noted. Skin: Skin warm and dry. Normal skin color. Normal skin turgor. No rashes/lesions/lacerations noted. Extremities: Extremities exhibit normal range of motion. Neuro: Oriented X 3. No motor deficit. No sensory deficit. Reflexes normal. Office Procedures EKG Details: EKG normal sinus rhythm with a ventricular rate between 75-80 no acute ischemic change are noted. Dr. Solis reviewed EKG and agreed normal sinus rhythm no acute ischemic changes. [id number], Complete Results AMB Hemoglobin A1c AMB Hemoglobin A1c 6.8 % Last Edit by CATHY Stone on 10/19/24 09:39 Results Reviewed Results Reviewed: Laboratory Last Values Hgb A1c (Clinic) 6.8 % (4.0-6.0) H 10/19/24 09:11 - Labs: Hemoglobin A1c 6.8%. - Tests: EKG showed normal sinus rhythm. Coding Level of Care Code Est Pt Level 4 (77994) Complex EM visit Add On G2211 Diagnoses Type 2 diabetes mellitus with hemoglobin A1c goal of less than 7.0% E11.9 Tachycardia R00.0 Preventative health care Z00.00 CPT Codes EKG - CPT: 24378-Jlyllgnrumdwwjuva, Complete ([id number]) Additional Codes NYA-7 Assessment Billing - NYA-7 Assessment Tool: NYA-7 Assessment 21162 ([id number]) PHQ-9 - 39552 - PHQ-9 Billing: Yes ([id number]) Assessment & Plan Assessment & Plan (1) Type 2 diabetes mellitus with hemoglobin A1c goal of less than 7.0%: Code(s): E11.9 - Type 2 diabetes mellitus without complications Category: Medical Plan: The patient will continue on Metformin 500 mg daily as his A1c level is well- controlled at 6.8%. He will monitor his blood glucose levels regularly, ensuring they remain under 160 mg/dL, and will return for follow-up in three months. (2) Tachycardia: Code(s): R00.0 - Tachycardia, unspecified Category: Medical Plan: An EKG was performed to establish a baseline due to the elevated heart rate of 110 bpm noted during the visit. The patient denies any symptoms such as dizziness, chest pain, or dyspnea, and heart auscultation was normal. (3) Preventative health care: Code(s): Z00.00 - Encounter for general adult medical examination without abnormal findings Category: Medical Plan: The patient was advised to receive influenza, shingles, and COVID-19 vaccinations, with arrangements made for administration pharmacy. Patient understands that he may receive the influenza vaccine here although the other vaccines he will need to go to the pharmacy. Plan Plan Patient was informed and verbally consented to the use of an ambient scribe for clinic note documentation during this visit. 1. Diabetes Mellitus The patient will continue on Metformin 500 mg daily as his A1c level is well-controlled at 6.8%. He will monitor his blood glucose levels regularly, ensuring they remain under 160 mg/dL, and will return for follow-up in three months. 2. Tachycardia An EKG was performed to establish a baseline due to the elevated heart rate of 110 bpm noted during the visit. The patient denies any symptoms such as dizziness, chest pain, or dyspnea, and heart auscultation was normal. 3. Preventative Care The patient was advised to receive influenza, shingles, and COVID-19 vaccinations, with arrangements made for administration either at the clinic or pharmacy. I discussed with the patient the importance of maintaining his current diabetes management plan, including the continuation of Metformin and regular blood glucose monitoring. We also reviewed the need for an EKG to assess his elevated heart rate and the normal findings from the test. Preventative care measures, including vaccinations for influenza, shingles, and COVID-19, were recommended, with options for administration discussed. Orders: Orders AMB Hemoglobin A1c Today E11.9 - Type 2 diabetes mellitus without complications Patient Instructions: - Continue taking Metformin 500 mg daily. - Monitor blood glucose levels regularly, aiming to keep them under 160 mg/dL. - Schedule follow-up appointment in three months. - Receive influenza, shingles, and COVID-19 vaccinations as discussed.
--- OUTSIDE RECORDS SUMMARY | 2024-10-19 10:04 | XMS_ITS | Encounter Summary ---
Author Organization [facility]ly [facility] Address [address] [place] [address] Care Team Providers Care Logger All Round Name Role Phone Ac Garcia DO Primary Care Provider [phone] Encounter Details Date Type Department Care Team Description 12/12/2017 Nurse Only [facility] Oncology Services [address] [place] [address] Loren rCain, RN Social History Tobacco Use Types Packs/Day [...] this encounter Progress Notes * Loren Crain, BANKING TEACHER - 12/12/2017 2:50 PM EDT Survivorship Visit [...] provided him with a copy of the [place] [employer] Cancers Survivorship Guide Book and encouraged him to call with any additional questions or concerns. Please see Survivorship Care Plan below. [facility] Survivorship Treatment Plan Ac Halle 1950 This Survivorship plan has been created for you by your oncology team. It contains information on how to contact her team, a summary of your diagnosis and treatment, recommendations for your follow-up care as well as information about maintaining a healthy style. Care Team: Surgeon Dr. Sukhjinder Whitney [phone] Danuta Hernandez [phone] 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 Annual skin exam by PCP or field instructor. ?? Lung: Patient at increased risk if [...] recommended resources that could be helpful: ??? [place] [employer]: www.cancer.org or call ??? [facility]: www.cancer.org/survivorshipcenter ??? [employer]: www.[employer].org ??? Survivor's Journey [email or web address] Note: Important Caution [...] on filedocumented in this encounter Care Teams Logger All Round Relationship Specialty Start Date End Date Ac Garcia DO [address] [place] [phone] PCP - General Internal Medicine 07/30/16 documented as of this encounter
--- OUTSIDE RECORDS SUMMARY | 2024-10-19 10:04 | XMS_ITS | Clinical Summary ---
Author Organization [facility] Address [address] [place] [address] Care Team Providers Care Electronic Communications Technician Name Role Phone Ac Garcia Primary Care Provider [phone] Allergies No known active allergies Medications Medication [...] 103 07/29/2023 9:02 AM EDT Temperature 36.5 C (97.7 F) 07/29/2023 9:02 AM EDT Respiratory Rate - - Oxygen Saturation 97% [...] Modern a risk series) 07/12/2020 06/14/2020, 05/17/2020 RSV Adult > 60+ Yrs or (1 - 1-dose 75+ series) 2024 Influenza Vaccine (#1) 2024 Hepatitis B Vaccines Aged Out No long er eligible based on patient's age to complete this topic RSV Ped < 20 months Aged Out No longe r eligible based on patient's age to complete this topic Care Teams Electronic Communications Technician Relationship Specialty Start Date End Date Ac Garcia DO [address] [place] [phone] PCP - General Internal Medicine 07/30/16
--- OUTSIDE RECORDS SUMMARY | 2024-10-19 10:04 | XMS_ITS | Clinical Summary ---
Author Organization [facility] Address [address] [place] [address] Phone Care Team Providers Care Group Home Manager Name Role Phone Kimmy Garcia DO Primary Care Provider [phone] Allergies No known active allergies Medications atorvastatin [...] Active Problems Problem Noted Date Diagnosed Date History of lung cancer 07/22/2024 Assessment & Plan (07/22/2024 4:28 PM EDT): Mr. Lewis is a 74 y.o. male who is S/P a right lower lobectomy for a stage III squamous cell carcinoma in July 2016 which was followed by adjuvant chemotherapy and radiation. He now presents today for a follow-up visit after his chest CT scan for lung cancer surveillance which was performed on 08/06/2024 which showed multiple stable nodules with no new or suspicious pulmonary nodules. Next chest CT scan will be due in 12 months time which will be July 2025. Malignant neoplasm of lower lobe of right lung (CMS/HCC V24, CMS/HCC V28) 08/05/2016 Encounters Date Type Department Care Team Description 07/21/2024 3:15 PM EDT Office Visit Thoracic Surgery - [place] [address] [place] [address] [address] [place] [address] Trever Zhao PA History of lung cancer (Primary Dx) from Last 3 Months Immunizations Name Administration Dates Next Due Moderna SARS-CoV-2 COVID-19, mRNA, LNP-S, preservative free 06/14/2020,05/17/2020 Surgical History Surgery Date Site/Laterality Comments OTHER SURGICAL HISTORY Right PROCEDURE: [place] RMVL LUNG OTHER THAN PNEUMONECTOMY 1 LOBE LOBECT; COMMENT: s/p RLL lobectomy 2017 Medical History Medical History Date Comments Lung cancer (CMS/[facility] V24, CMS/[facility] V28) 2017 DX:Lung cancer (HCC) Family History Medical History Relation Name Comments [...] Sign Reading Time Taken Comments Blood Pressure 124/74 07/21/2024 2:54 PM EDT Pulse 98 07/21/2024 2:54 PM EDT Temperature 36.5 C (97.7 F) 07/21/2024 2:54 PM EDT Respiratory Rate - - Oxygen Saturation 95% 07/21/2024 2:54 PM EDT Inhaled Oxygen Concentration - - Weight 116 kg (255 lb) 07/21/2024 2:54 PM EDT Height 194.9 cm (6' 4.75 ) 07/21/2024 2:54 PM ED T Body Mass Index 30.44 07/21/2024 2:54 PM EDT Plan of Treatment Health Maintenance Due Date Last Done Comments DTaP,Tdap,and Td Vaccines (1 - Tdap) 1969 Pneumococcal Vaccine: 50+ Years (1 of 2 - PCV) 1968 Zoster Vaccines (1 of 2) 1969 Abdominal Aortic Aneurysm (AAA) Screen 01/17/2022 Cholesterol Screening (Lipid Panel) 01/17/2022 Colorectal Cancer Screening: Colonoscopy 01/17/2022 Falls Risk Assessment 01/17/2022 Hepatitis C Screening 01/17/2022 Lung Cancer Screening (Low Dose CT) 01/17/2022 Medicare Annual Wellness Visit 01/17/2022 Social Influencers of Health Screening 01/17/2022 Depression Screening 02/11/2024 RSV Immunization Adult Patients (1 - 1-dose 75+ series) 2024 COVID-19 Vaccine (6 - Moderna risk season) 2024 12/08/2023, 01/17/2022, 04/17/2021, Additional history exists Influenza Vaccine (#1) 2024 , 01/17/2022, 12/05/2020, Additional history exists HIB Vaccines Aged Out No longer eligi [...] age to complete this topic Meningococcal B Vaccine Aged Out No l onger eligible based on patient's age to complete this topic RSV Immunization Patients Under 20 months Aged Out No longer eligible based on patient's age to complete this topic Varicella Vaccines Aged Out No longer eligible based on patient's age to complete this topic Insurance BLUE CROSS - [place] MEDICARE ADVANTAGE Advance Directives Documents on File Type Date Recorded Patient Project Analyst Expl anation Health Care Decision (hx) 06/25/2022 AD RAMIREZ DIRECTIVE Health Care Decision (hx) 06/25/2022 AD RAMIREZ DIRECTIVE Care Teams Group Home Manager Relationship Specialty Start Date End Date Kimmy Garcia DO [address] [place] [phone] PCP - General 05/29/16
== END 2024-10-19 09:48 | disposition home or self-care (01) ==
LOC: HO.HMCSH 08:54
PROVIDERS: PCP Internal Medicine; Visit Provider Physician Assistant Medical
DX: E11.9 Type 2 diabetes mellitus without complications (principal); R00.0 Tachycardia, unspecified; Z00.00 Encounter for general adult medical examination without abnormal findings

== ENCOUNTER → 2024-10-19 08:54 | Outpatient (BNVA) | payer MEDICARE, SELFPAY | PROVIDERS: PCP Internal Medicine; Visit Provider Physician Assistant Medical | DX: Z00.00 Encounter for general adult medical examination without abnormal findings (principal); E11.9 Type 2 diabetes mellitus without complications; R00.0 Tachycardia, unspecified | CPT/HCPCS: 83036; 93005; 96127; 99212 ==

== ENCOUNTER 2024-10-21 09:16 | Outpatient (AMB) | payer MEDICARE, SELFPAY ==
--- NOTE | 2024-10-21 09:19 | AM.OFFVISNUR ---
Intake Visit Reasons: flu shot Allergies No Known Allergies (No Known Allergies*) Allergy (Verified 10/19/24 09:52) Office Procedures Flu Questionnaire Does the patient have a severe egg allergy?: No Does the patient have severe life threatening allergies?: No Does the patient have a fever or illness today?: No Has the patient ever had Guillain-[place] Syndrome?: No Has the patient ever had any past reaction to a flu shot?: No Immunizations Fluarix [id number] (PF) 45 mcg (15 mcg x 3)/0.5 mL IM syringe Performing Provider: Jay Solis MD [facility] [place] [facility] Administered by: CATHY Stone on 10/21/24 09:20 Dose Route Admin Location Dispensed Lot Number Expiration Date [facility] Grain Blender 0.5 mL IM Right Deltoid 0.5 mL [id number] 08/09/25 [id number] [facility] V[facility] Given Date VIS Provided VIS Publication Date 10/21/24 Single Vaccine 24 Eligibility Eligibility Date Funding Source Not [facility] Eligible 10/21/24 Private Assessment & Plan Assessment & Plan Orders: Orders Influenza [id number] Immunization Today Z23 - Encounter for immunization Coding
--- OUTSIDE RECORDS SUMMARY | 2024-10-21 10:43 | XMS_ITS | Clinical Summary ---
Author Organization [facility] Address [address] [place] [address] Phone Care Team Providers Care X Ray Operator Name Role Phone Kimmy Garcia DO Primary Care Provider [phone] Allergies No known active allergies Medications atorvastatin [...] PM EDT Office Visit Thoracic Surgery - [place] [address] [place] [address] [address] [place] [address] Trever Zhao PA History of lung cancer (Primary Dx) from Last 3 Months Immunizations Name Administration Dates Next Due Moderna SARS-CoV-2 COVID-19, mRNA, LNP-S, preservative free 06/14/2020,05/17/2020 Surgical History Surgery Date Site/Laterality Comments OTHER SURGICAL HISTORY Right PROCEDURE: [place] RMVL LUNG OTHER THAN PNEUMONECTOMY 1 LOBE LOBECT; COMMENT: s/p RLL lobectomy 2017 Medical History Medical History Date Comments Lung cancer (CMS/[facility] V24, CMS/[facility] V28) 2017 DX:Lung cancer (HCC) Family History [...] Documents on File Type Date Recorded Patient Systems Navigator Expl anation Health Care Decision (hx) 06/25/2022 AD RAMIREZ DIRECTIVE Health Care Decision (hx) 06/25/2022 AD RAMIREZ DIRECTIVE Care Teams X Ray Operator Relationship Specialty Start Date End Date Kimmy Garcia DO [address] [place] [phone] PCP - General 05/29/16
--- OUTSIDE RECORDS SUMMARY | 2024-10-21 10:43 | XMS_ITS | Encounter Summary ---
Author Organization [facility] Address [address] [place] [address] Care Team Providers Care Exhibitions Curator Name Role Phone Ac Garcia DO Primary Care Provider [phone] Encounter Details Date Type Department Care Team Description 12/12/2017 Nurse Only [facility] [address] [place] [address] Loren Crain, RN Social History Tobacco Use [...] this encounter Progress Notes * Loren Crain, HYDROGEN PLANT OPERATOR - 12/12/2017 2:50 PM EDT Survivorship Visit [...] provided him with a copy of the [place] [employer] Cancers Survivorship Guide Book and encouraged him to call with any additional questions or concerns. Please see Survivorship Care Plan below. [facility] Survivorship Treatment Plan Ac Halle 1950 This Survivorship plan has been created for you by your oncology team. It contains information on how to contact her team, a summary of your diagnosis and treatment, recommendations for your follow-up care as well as information about maintaining a healthy style. Care Team: Surgeon Dr. Sukhjinder Whitney [phone] Danuta Hernandez [phone] 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 Annual skin exam by PCP or pharmacy stock clerk. ?? Lung: Patient at increased risk if [...] recommended resources that could be helpful: ??? [place] [employer]: www.cancer.org or call ??? [facility]: www.cancer.org/survivorshipcenter ??? [email or web address]: www.[email or web address] ??? Survivor's Journey [email or web address] Note: Important Caution [...] on filedocumented in this encounter Care Teams Exhibitions Curator Relationship Specialty Start Date End Date Ac Garcia DO [address] [place] [phone] PCP - General Internal Medicine 07/30/16 documented as of this encounter
--- OUTSIDE RECORDS SUMMARY | 2024-10-21 10:43 | XMS_ITS | Clinical Summary ---
Author Organization [facility] Address [address] [place] [address] Care Team Providers Care Deputy Register Of Deeds Name Role Phone Ac Garcia Primary Care Provider [phone] Allergies No known active allergies Medications Medication [...] age to complete this topic Care Teams Deputy Register Of Deeds Relationship Specialty Start Date End Date Ac Garcia DO [address] [place] [phone] PCP - General Internal Medicine 07/30/16
== END 2024-10-21 09:50 | disposition home or self-care (01) ==
LOC: HO.HMCSH 09:16
PROVIDERS: PCP Internal Medicine
DX: Z23 Encounter for immunization (principal)

== ENCOUNTER → 2024-10-21 09:16 | Outpatient (BNVA) | payer MEDICARE, SELFPAY | PROVIDERS: PCP Internal Medicine | DX: Z23 Encounter for immunization (principal) | CPT/HCPCS: 90471; 90656 ==

== ENCOUNTER 2025-01-24 10:39 | Outpatient (AMB) | payer MEDICARE, SELFPAY ==
--- NOTE | 2025-01-24 10:49 | A.OFFPC_ITS ---
Vital Signs 01/24/25 10:59 Height 6 ft 1.75 in Weight 247 lb 0.8 oz BMI 31.9 BP 115/69 Blood Pressure Location Rt brachial Pulse 96 Temp 94.1 F L Pulse Oximetry (%) 94 Intake Visit Reasons: 3 month follow up Allergies No Known Allergies (No Known Allergies*) Allergy (Verified 01/24/25 13:41) Medication List - Last Reconciled 01/24/25 by Kasia Peters PA-C alcohol swabs (Alcohol Pads) 1 pad topical DAILY atorvastatin 10 mg PO DAILY blood sugar diagnostic (FreeStyle Lite Strips) CHECK GLUCOSE 3 TIMES A DAY BEFORE MEALS blood-glucose meter (FreeStyle Lite Meter kit) check glucose TID before meals cholecalciferol (vitamin D3) 50 mcg PO DAILY fluticasone propionate 50 mcg/actuation 1 spray intranasal DAILY ibuprofen 800 mg PO TID lancets (FreeStyle Lancets) CHECK GLUCOSE 3 TIMES A DAY BEFORE MEALS and before bedtime magnesium 500 mg PO DAILY metformin 500 mg PO DAILY multivitamin with folic acid 400 mcg (Daily-Sixto (with folic acid)) 1 tab PO DAILY tamsulosin 0.4 mg PO DAILY Tobacco use date assessed: 10/19/24 Dental Screening Dental Screen Date: 01/24/25 Did you have a dental visit in the last 12 months?: No Did you have a dental problem in the last 6 months where you did not have access to dental care?: No Was dental information given to patient?: No HPI HPI Comments History of Present Illness Details History of Present Illness The patient is a 74 year old male presenting for a three-month follow-up for diabetes management. His current hemoglobin A1c is 7.1%, which is an increase from 6.8% in October 2024. He has experienced three to four episodes of hypoglycemia, with blood sugar dropping as low as 80-89 mg/dL, which made him feel unwell. The patient prefers to keep his blood sugar around 125-130 mg/dL and has seen it go as high as 170 mg/dL. He is currently only taking metformin 500 mg daily for his diabetes. The patient reports having a fast heart rate, which was also noted at his last visit, prompting an in-office EKG that was negative for atrial fibrillation. He experiences shortness of breath with overexertion, which resolves with rest. He does not have a history of atrial fibrillation and does not see a card decorator. The patient recently fell on a patch of ice, twisting and landing on his rear, and has since had some discomfort in his stomach, though he denies hitting his stomach directly. He did not hit his head or lose consciousness. His last annual physical exam and blood work were in April of the previous year. At that time, results showed mild anemia, slightly elevated potassium, high triglycerides at 163 mg/dL, and a high vitamin B12 level, after which he was advised to stop taking an [id number] vitamin B12 supplement. His current medications include vitamin D, atorvastatin, ibuprofen, a nasal spray, magnesium, a multivitamin with folic acid, and tamsulosin. Social History - Alcohol Use: The patient denies drinki ng alcohol for the past 10 years [facility] Medical History (Updated 01/24/25 @ 16:13 by Kasia Peters PA-C) Healthcare maintenance Fall Abdominal muscle strain HEWITT (dyspnea on exertion) Preventative health care Tachycardia Type 2 diabetes mellitus with hemoglobin A1c goal of less than 7.0% New onset type 2 diabetes mellitus Class 1 obesity with body mass index (BMI) of 33.0 to 33.9 in adult Decreased hearing of both ears History of intracranial hemorrhage Mild hypercholesterolemia BPH (benign prostatic hyperplasia) Cataract Alcoholism Hematuria Vitamin D deficiency Back pain Hyperlipidemia Gout Lung cancer Surgical History Hx of cataract extraction History of lung surgery Hx of colonoscopy (~11/11/22) Social History Housing: House Alcohol intake: current Alcohol intake frequency: does not drink Patient Tobacco Use Status: Former Tobacco user service: No Current occupational status: retired Cognitive needs: No Hearing needs: Yes (b/l hearing aids) Vision needs: No Questionnaire PHQ-9 Over the last 2 weeks, how often have you been bothered by any of the following problems? 1. Little interest or pleasure in doing things: not at all 2. Feeling down, depressed, or hopeless: not at all 3. Trouble falling or staying asleep, or sleeping too much: not at all 4. Feeling tired or having little energy: not at all 5. Poor appetite or overeating: not at all 6. Feeling bad about yourself - or that you are a failure or have let yourself or your family down: not at all 7. Trouble concentrating on things, such as reading the newspaper or watching television: not at all 8. Moving or speaking so slowly that other people could have noticed. Or the opposite - being so fidgety or restless that you have been moving around a lot more than usual: not at all 9. Thoughts that you would be better off or of hurting yourself in some way: not at all Total score: 0 Depression Screening Interpretation: Negative Depression Screening Done: Yes 08139 - PHQ-9 Billing: Yes Source: Developed by Drs. Ac Conte, Milagros Box, Federico Soto and colleagues, with an educational carmenza from [employer]. Thrive Questionnaire Date Thrive assessed: 07/13/24 I am a: Patient What is your living situation today?: I have a steady place to live Within the past 12 months, did the food you bought not last and you didn't have the money to get more?: Never true Within the past 12 months, did you worry whether your food would run out before you got money to buy more?: Never true Do you have trouble paying for medicines?: No Do you have trouble getting transportation to medical appointments?: No Do you have trouble paying your heating and electricity bill?: No Do you have trouble taking care of your child, family member or friend?: No Do you have trouble with day-to-day activities such as bathing, preparing meals, shopping, managing finances, etc.?: No Are you currently unemployed and looking for a job?: No Are you interested in more education?: No THRIVE Score: 0 AUDIT C Alcohol Use Questionnaire (AUDIT-C) 1. How often do you have a drink containing alcohol?: Never 3. How often do you have six or more drinks on one occasion?: Never Total Score: 0 Score Reviewed/Action Taken: No NYA-7 AMB Questionnaire NYA-7 Date NYA - 7 assessed: 07/13/24 Feeling nervous, anxious, or on edge: 0 = Not at all Not being able to stop or control worryin = Not at all Worrying too much about different things: 0 = Not at all Trouble relaxin = Not at all Being so restless that it is hard to sit still: 0 = Not at all Becoming easily annoyed or irritable: 0 = Not at all Feeling afraid as if something awful might happen: 0 = Not at all Total NYA-7 score (0-4 normal; 5-9 mild; 10-14 moderate; 15-21 severe): 0 Source: Developed by Drs. Ac Conte, Milagros Box, Federico Soto and colleagues, with an educational carmenza from [employer]. NYA-7 Assessment Billing NYA-7 Assessment Tool: NYA-7 Assessment 37242 Review of Systems Narrative Review of Systems - General: Reports feeling unwell with low blood sugar readings. - Cardiovascular: Denies feeling that his heart is racing, denies chest pain. - Respiratory: Reports dyspnea on exertion, which improves with rest. Denies dyspnea when lying flat. - Abdominal: Reports discomfort in the stomach since a recent fall. - Genitourinary: Reports normal urination. - Musculoskeletal: Reports tight muscle feeling in his leg but denies knee pain. - Neurological: Denies hitting his head or loss of consciousness with his fall. Const All systems reviewed & are unremarkable except as noted in HPI and below Physical exam (Primary Care) Vital Signs: Last Vital Signs Temp 94.1 F L 01/24/25 10:59 Pulse 96 01/24/25 10:59 BP 115/69 01/24/25 10:59 Pulse Ox 94 01/24/25 10:59 Care Plan Goal for BP management: <140/90 at Goal BMI result Body Mass Index 31.9 BMI Assessment/Plan discussion: High BMI High, discussed plan: lifestyle, weight reduction, dietary, physical activity, alcohol moderation and other Tobacco/Smoking Status: Tobacco use Status Tobacco use date assessed 10/19/24 01/24/25 10:52 Patient Tobacco Use Status Former Tobacco user 01/24/25 10:52 PHQ-9: PHQ-9 Score PHQ-9: Total score 0 01/24/25 13:43 Depression Screening Interpretation: Negative Thrive Assessment: Date of Thrive Assessment Date Thrive assessed 07/13/24 01/24/25 10:52 Narrative Physical Exam Appearance: Alert. Oriented X3. No acute distress. Head: Normal external exam. Normocephalic. Atraumatic. Eyes: Pupils are equal, round, and reactive to light. Extraocular movements intact. Conjunctiva and sclera normal. Eyelids normal. Throat: Pharynx normal. Uvula midline. Moist mucous membranes. Neck: Normal inspection. Neck supple. Full range of motion. No adenopathy. Thyroid Normal. No meningeal signs. No neck mass noted. Cardiovascular: Heart rate elevated at 90-111 bpm. Normal heart rhythm. Heart sound normal. No murmurs noted. Pulses normal throughout. Respiratory: No respiratory distress. Painless inspiration. Breath sounds normal. No wheezes/rales/rhonchi noted. No accessory muscle usage noted or decreased air movement noted. Abdomen: Soft and nontender. Bowel sounds normal in all 4 quadrants. No distention noted. No organomegaly noted. No visible injury noted. Patient reports discomfort in the stomach area after a fall. Back: No costovertebral angle tenderness. Full range of motion noted. Skin: Skin warm and dry. Normal skin color. Normal skin turgor. No rashes/lesions/lacerations noted. Extremities: No lower extremity edema. Extremities exhibit normal range of motion. Neuro: Oriented X 3. No motor deficit. No sensory deficit. Reflexes normal. Office Procedures Flu Questionnaire Does the patient have a severe egg allergy?: No Does the patient have severe life threatening allergies?: No Does the patient have a fever or illness today?: No Has the patient ever had Guillain-[place] Syndrome?: No Has the patient ever had any past reaction to a flu shot?: No Results AMB Hemoglobin A1c AMB Hemoglobin A1c 7.1 % Last Edit by CATHY Stone on 01/24/25 11:19 Immunizations Fluarix [id number] (PF) 45 mcg (15 mcg x 3)/0.5 mL IM syringe Performing Provider: Kasia Peters PA-C [facility] Documented (not given) by: Luz Maria Ann on 01/24/25 11:05 Reason Not Given: Received Previously Results Reviewed Results Reviewed: Laboratory Last Values Hgb A1c (Clinic) 7.1 % (4.0-6.0) H 01/24/25 11:17 - Labs: Hemoglobin A1c is 7.1%. - EKG: An EKG performed at the last visit did not show atrial fibrillation. Coding Level of Care Code Est Pt Level 4 (72598) Add On Problem Visit Only Diagnoses Type 2 diabetes mellitus with hemoglobin A1c goal of less than 7.0% E11.9 Tachycardia R00.0 HEWITT (dyspnea on exertion) R06.09 Abdominal muscle strain S39.011A Fall W19.XXXA Healthcare maintenance Z00.00 Additional Codes NYA-7 Assessment Billing - NYA-7 Assessment Tool: NYA-7 Assessment 73762 ([id number]) PHQ-9 - 52235 - PHQ-9 Billing: Yes ([id number]) Time Spent (min) 60 Assessment & Plan Assessment & Plan (1) Type 2 diabetes mellitus with hemoglobin A1c goal of less than 7.0%: Code(s): E11.9 - Type 2 diabetes mellitus without complications Category: Medical Plan: The patient's hemoglobin A1c is 7.1%, slightly up from 6.8%. Given the recent episodes of hypoglycemia, his current dose of metformin 500 mg daily will be continued without any changes. The patient was advised to check his blood glucose once daily and as needed if he is not feeling well, as he is not on insulin. (2) Tachycardia: Code(s): R00.0 - Tachycardia, unspecified Category: Medical Plan: The patient has a persistent tachycardia, with heart rates between 90-111 bpm, and reports dyspnea on exertion. Auscultation and palpation do not suggest atrial fibrillation, consistent with a prior EKG. To further investigate the cause, a nuclear stress test and an echocardiogram will be ordered. Initiation of a beta-viri, such as metoprolol, will be deferred until after the stress test results are available due to his lower-range blood pressure. (3) HEWITT (dyspnea on exertion): Code(s): R06.09 - Other forms of dyspnea Category: Medical (4) Abdominal muscle strain: Code(s): S39.011A - Strain of muscle, fascia and tendon of abdomen, initial encounter Category: Medical Plan: The patient reported a recent fall on ice, resulting in some abdominal discomfort. Physical exam of the abdomen was benign. The patient was advised to report if pain worsens, at which point X-rays can be ordered. (5) Fall: Code(s): W19.XXXA - Unspecified fall, initial encounter Category: Medical (6) Healthcare maintenance: Code(s): Z00.00 - Encounter for general adult medical examination without abnormal findings Category: Medical Plan: The patient is due for his annual physical exam. Fasting blood work will be ordered before his next visit to include a CBC, CMP, lipid panel, inflammatory markers, magnesium, urinalysis, PSA, thyroid panel, vitamin B12, and vitamin D levels. The lab work will re-evaluate his previous findings of anemia, hyperkalemia, hypertriglyceridemia, and elevated B12. He reports needing no med ication refills at this time. A follow-up appointment is scheduled in three months. Plan Plan Patient was informed and verbally consented to the use of an ambient scribe for clinic note documentation during this visit. 1. Type 2 Diabetes Mellitus The patient's hemoglobin A1c is 7.1%, slightly up from 6.8%. Given the recent episodes of hypoglycemia, his current dose of metformin 500 mg daily will be continued without any changes. The patient was advised to check his blood glucose once daily and as needed if he is not feeling well, as he is not on insulin. 2. Tachycardia And Dyspnea On Exertion The patient has a persistent tachycardia, with heart rates between 90-111 bpm, and reports dyspnea on exertion. Auscultation and palpation do not suggest atrial fibrillation, consistent with a prior EKG. To further investigate the cause, a nuclear stress test and an echocardiogram will be ordered. Initiation of a beta-viri, such as metoprolol, will be deferred until after the stress test results are available due to his lower-range blood pressure. 3. Recent Fall And Abdominal Discomfort The patient reported a recent fall on ice, resulting in some abdominal discomfort. Physical exam of the abdomen was benign. The patient was advised to report if pain worsens, at which point X-rays can be ordered. 4. Health Maintenance The patient is due for his annual physical exam. Fasting blood work will be ordered before his next visit to include a CBC, CMP, lipid panel, inflammatory markers, magnesium, urinalysis, PSA, thyroid panel, vitamin B12, and vitamin D levels. The lab work will re-evaluate his previous findings of anemia, hyperkalemia, hypertriglyceridemia, and elevated B12. He reports needing no medication refills at this time. A follow-up appointment is scheduled in three months. Discussion Notes I discussed the patient's hemoglobin A1c of 7.1% and noted it was a slight increase. However, due to his reports of occasional hypoglycemia, I recommended we continue his current metformin 500 mg daily dose without any changes to avoid causing further low blood sugar events. We reviewed his blood sugar monitoring, and I advised him to check it once daily, and extra times only if he feels unwell, to avoid [id number] costs for test strips. I addressed his persistently fast heart rate and shortness of breath with activity. I explained that while his heart rhythm is regular and not atrial fibrillation, further investigation is warranted. I informed him that I am ordering an echocardiogram and a stress test, and that he should expect a call from the hospital to schedule these within a month or two. After consulting with a colleague, the decision was made to hold off on starting a heart rate- controlling medication until after cardiac testing is complete. We discussed his upcoming annual physical, and I provided him with a lab order for fasting blood work to be completed before his next visit. I reviewed his rec ent fall and advised him to let me know if his discomfort worsens, at which point imaging could be arranged. The patient is scheduled to return for a follow-up in three months. Orders: Orders Complete Blood Count Auto Diff Today Z00.00 - Encounter for general adult medical examination without abnormal findings Vitamin B12 and Folate Today Z00.00 - Encounter for general adult medical examination without abnormal findings UA CC w/rflx Micro + Cult Today Z00.00 - Encounter for general adult medical examination without abnormal findings Microalbumin, Random (w Creat) Today E11.9 - Type 2 diabetes mellitus without complications PSA,Total (Free>4and<10) Today Z00.00 - Encounter for general adult medical examination without abnormal findings CA echo transthoracic complete Today E78.00 - Pure hypercholesterolemia, unspecified, E78.5 - Hyperlipidemia, unspecified, R00.0 - Tachycardia, unspecified, R06.09 - Other forms of dyspnea Influenza [id number] Immunization Today Z23 - Encounter for immunization AMB Hemoglobin A1c Today E11.9 - Type 2 diabetes mellitus without complications Comprehensive [place]. Panel Fast Today Z00.00 - Encounter for general adult medical examination without abnormal findings C Reactive Protein Today Z00.00 - Encounter for general adult medical examination without abnormal findings Erythrocyte Sedimentation Rate Today Z00.00 - Encounter for general adult medical examination without abnormal findings Magnesium Today Z00.00 - Encounter for general adult medical examination without abnormal findings Vitamin D 25-OH Total Today Z00.00 - Encounter for general adult medical examination without abnormal findings TSH reflex Free T4 Today Z00.00 - Encounter for general adult medical examination without abnormal findings Lipid Panel Today Z00.00 - Encounter for general adult medical examination without abnormal findings CA stress test Today E78.00 - Pure hypercholesterolemia, unspecified, E78.5 - Hyperlipidemia, unspecified, R00.0 - Tachycardia, unspecified, R06.09 - Other forms of dyspnea NM cardiolite stress test Today E78.00 - Pure hypercholesterolemia, unspecified, E78.5 - Hyperlipidemia, unspecified, R00.0 - Tachycardia, unspecified, R06.09 - Other forms of dyspnea Patient Instructions: Patient Instructions - Continue taking your metformin 500 mg once a day as prescribed. - Check your blood sugar once a day, and also check it any time you do not feel well. - Do not stop taking your other current medications, including vitamin D, atorvastatin, ibuprofen, nasal spray, magnesium, multivitamin, and tamsulosin. - Please go for fasting blood work before your next appointment. Do not eat or drink anything before the test. - The hospital will call you to schedule an ultrasound of your heart and a stress test. Please attend these appointments. - If the discomfort from your fall gets worse, please let me know. - Return to the clinic in three months for a follow-up visit.
[2025-01-24 10:59] VITALS: BP 115/69; PULSE 96; TEMP 34.5; O2SAT 94; BMI 31.9
== END 2025-01-24 11:36 | disposition home or self-care (01) ==
LOC: HO.HMCSH 10:39
PROVIDERS: PCP Physician Assistant Medical; Visit Provider Physician Assistant Medical
DX: E11.9 Type 2 diabetes mellitus without complications (principal); R00.0 Tachycardia, unspecified; R06.09 Other forms of dyspnea; S39.011A Strain of muscle, fascia and tendon of abdomen, initial encounter; W19.XXXA Unspecified fall, initial encounter; Z00.00 Encounter for general adult medical examination without abnormal findings; Z23 Encounter for immunization

== ENCOUNTER → 2025-01-24 10:39 | Outpatient (BNVA) | payer MEDICARE, SELFPAY | PROVIDERS: PCP Internal Medicine; Visit Provider Physician Assistant Medical | DX: Z00.00 Encounter for general adult medical examination without abnormal findings (principal); Z28.89 Immunization not carried out for other reason; S39.011A Strain of muscle, fascia and tendon of abdomen, initial encounter; E11.9 Type 2 diabetes mellitus without complications; R00.0 Tachycardia, unspecified; R06.09 Other forms of dyspnea; Z91.81 History of falling | CPT/HCPCS: 83036; 90471; 96127; 99212 ==

== ENCOUNTER 2025-01-26 09:05 | Outpatient (REF) | payer MEDICARE, SELFPAY ==
--- OUTSIDE RECORDS SUMMARY | 2025-01-26 09:56 | XMS_ITS | Encounter Summary ---
Author Organization [facility] Prior to 07/10/24 Address [address] [place] [address] Care Team Providers Care Hogshead Filler Name Role Phone Ac Garcia DO Primary Care Provider [phone] Encounter Details Date Type Department Care Team Description 12/12/[address] [facility] Oncology [facility] [address] [place] [address] Loren Crain, RN Social History Tobacco Use [...] this encounter Progress Notes * Loren Crain, SATELLITE DISH TECHNICIAN - 12/12/2017 2:50 PM EDT Survivorship Visit [...] provided him with a copy of the [place] [employer] Cancers Survivorship Guide Book and encouraged him to call with any additional questions or concerns. Please see Survivorship Care Plan below. [facility] Survivorship Treatment Plan Ac Halle 1950 This Survivorship plan has been created for you by your oncology team. It contains information on how to contact her team, a summary of your diagnosis and treatment, recommendations for your follow-up care as well as information about maintaining a healthy style. Care Team: Surgeon Dr. Sukhjinder Whitney [phone] Danuta Hernandez [phone] 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 Annual skin exam by PCP or retail associate manager bilingual. ?? Lung: Patient at increased risk if [...] recommended resources that could be helpful: ??? [place] [employer] Society: www.cancer.org or call ??? [facility]: www.cancer.org/survivorshipcenter ??? [employer]: www.KAL.org ??? Survivor's Journey [email or web address] Note: Important Caution [...] on filedocumented in this encounter Care Teams Hogshead Filler Relationship Specialty Start Date End Date Ac Garcia DO [address] [place] [phone] PCP - General Internal Medicine 07/30/16 documented as of this encounter
--- OUTSIDE RECORDS SUMMARY | 2025-01-26 09:56 | XMS_ITS | Clinical Summary ---
Author Organization [facility] Address [address] [place] [phone] Phone Care Team Providers Care Development Technical Lead Name Role Phone Ac Garcia DO Primary Care Provider [phone] Allergies No known active allergies Medications atorvastatin [...] lobe of right lung 0 08/05/2016 Immunizations Immunization Administration Dates Next Due Moderna SARS-CoV-2 COVID-19, mRNA, LNP-S, preservative free 06/14/2020,05/17/2020 Surgical History Surgery Date Site/Laterality Comments OTHER SURGICAL HISTORY Right PROCEDURE: [place] [facility] LUNG OTHER THAN PNEUMONECTOMY 1 LOBE LOBECT; COMMENT: s/p RLL lobectomy 2017 Medical History Medical History Date Comments Lung cancer ([facility] V24, [facility] V28) 2017 DX:Lung cancer (HCC) Family History Medical History Relation Name Comments No Known Problems Father No Known Problems Mother Relation Name Status Comments Brother Alive Father Mother Social History Tobacco Use Types Packs/Day Years Used Date Smoking Tobacco: Former Cigarettes 0 Q uit: 02/11/2012 Smokeless Tobacco: Never Alcohol Use Standard Drinks/Week Comments Not Currently 0 (1 standard drink = 0.6 oz pur e alcohol) Sex and Gender Information Value Date Recorded Sex Assigned at Not on file Legal Sex Male 10:02 AM EST Gender Identity Not on file Sexual Orientation Not on file Last Filed Vital Signs [...] Health Maintenance Due Date Last Done Comments Colorectal Cancer Screening: Colonoscopy 1950 DTaP,Tdap,and Td Vaccines (1 - Tdap) 1968 Pneumococcal Vaccine: 50+ Years (1 of 2 - PCV) 1968 Zoster Vaccines (1 of 2) 1969 Abdominal Aortic Aneurysm (AAA) Screen 01/17/2022 Cholesterol Screening (Lipid Panel) 01/17/2022 Falls Risk Assessment 01/17/2022 Hepatitis C Screening 01/17/2022 Lung Cancer Screening (Low Dose CT) 01/17/2022 Medicare Annual Wellness Visit 01/17/2022 Social Influencers of Health Screening 01/17/2022 Depression Screening 02/11/2024 RSV Immunization Adult Patients (1 - 1-dose 75+ series) 2024 COVID-19 Vaccine ( season) 2024 12/08/2023, 01/17/2022, 04/17/2021, Additional history exists Influenza Vaccine (#1) 2024 4, 01/17/2022, 12/05/2020, Additional history exists HIB Vaccines [...] Documents on File Type Date Recorded Patient Manager Medicaid Expl anation Health Care Decision (hx) 06/25/2022 AD RAMIREZ DIRECTIVE Health Care Decision (hx) 06/25/2022 AD RAMIREZ DIRECTIVE Care Teams Development Technical Lead Relationship Specialty Start Date End Date Ac Garcia DO [address] [place] [phone] PCP - General 05/29/16
--- OUTSIDE RECORDS SUMMARY | 2025-01-26 09:57 | XMS_ITS | Clinical Summary ---
Author Organization [facility] Prior to 07/10/24 Address [address] [place] [address] Care Team Providers Care Potato Spotter Name Role Phone JoseAc mohan Primary Care Provider Allergies No known active allergies Medications Medication [...] age to complete this topic Care Teams Potato Spotter Relationship Specialty Start Date End Date Ac Garcia DO [address] [place] [phone] PCP - General Internal Medicine 07/30/16
[2025-01-26 10:32] LABS: Appearance Urine Clear; Glucose Urine UA Negative (Negative); PH 6.0 (5.0-9.0); Specific Gravity - Urine 1.015 (1.005-1.025)
[2025-01-26 10:44] LABS: MANUAL DIFF FLAG NO
[2025-01-26 10:56] LABS: Hematocrit 41.3 % (42.0-52.0); Hemoglobin 13.7 g/dl (14.0-18.0); Imm Gran Abs Auto 0.04 X10*3/uL (0.00-0.03); Imm Gran Pct Auto 0.6 % (0.0-0.4); Lymphocytes Absolute Auto 1.2 X10*3/uL (1.2-4.9); Mean Corpuscular HGB Conc 33.2 g/dl (31.0-36.0); Mean Corpuscular Hemoglobin 30.6 pg (27.0-33.0); Mean Corpuscular Volume 92.4 fL (80.0-98.0); NRBC Abs Auto 0.000 X10*3/uL (0.0-0.012); NRBC Pct Auto 0.0 /100WBC (0.0-0.2); Platelet Count 282 X10*3/uL (160-400); Red Blood Count 4.47 X10*6/uL (4.60-5.80); White Blood Count 6.3 X10*3/uL (4.8-10.8)
[2025-01-26 11:28] LABS: Microalbum/Creatinine Ratio Ur 7.0 ug/mg cr (<30)
[2025-01-26 11:28] LABS: Alanine Aminotransferase 30 U/L (0-40); Albumin Level 4.7 g/dL (3.5-5.0); Alkaline Phosphatase 91 U/L (39-117); Anion Gap 15 (12-20); Aspartate Amino Transferase 31 U/L (5-37); Blood Urea Nitrogen 21 mg/dL (9-16); Calcium 9.7 mg/dL (8.4-10.2); Carbon Dioxide 24 mmol/L (22-29); Chloride 104 mmol/L (96-108); Cholesterol 134 mg/dL (<200); Estimated Glomerular Filt Rate > 60; HDL Cholesterol 31 mg/dL (>40); Magnesium 2.1 mg/dL (1.6-2.6); Potassium 4.4 mmol/L (3.3-5.1); Sodium 139 mmol/L (135-145); Total Protein 7.7 g/dL (6.5-8.0); Triglycerides 246 mg/dL (<150)
[2025-01-26 11:37] LABS: PSA,Total (Free>4and<10) 1.24 ng/mL (0.00-4.00)
[2025-01-26 11:51] LABS: Folate 14.0 ng/mL (> or = 4.0); Vitamin B12 838 pg/mL (200-900)
== END 2025-01-26 09:06 | disposition home or self-care (01) ==
LOC: HO.HMGCLDS 09:05
PROVIDERS: PCP Physician Assistant Medical; Visit Provider Physician Assistant Medical
DX: Z00.00 Encounter for general adult medical examination without abnormal findings (principal); E11.9 Type 2 diabetes mellitus without complications; Z12.5 Encounter for screening for malignant neoplasm of prostate; Z13.21 Encounter for screening for nutritional disorder
CPT/HCPCS: 36415; 80053; 80061; 81003; 82043; 82306; 82570; 82607; 82746; 83735; 84153; 84443; 85025; 85652; 86140